=== PATIENT | male | born 2000 | race Two or more races ===

== ENCOUNTER 2024-06-05 07:54 | Emergency (ER) | payer OTHER, MEDICAID, SELFPAY ==
--- NOTE | 2024-06-05 08:07 | PC.NURSE ---
Call pt from lobby and outside no answer @[phone]
--- NOTE | 2024-06-05 08:17 | PC.NURSE ---
Call pt 5om lobby and outside no answer @[phone]
--- NOTE | 2024-06-05 08:39 | PC.NURSE ---
Call pt from lobby and outside no answer @[phone]
== END 2024-06-05 08:40 | disposition left against medical advice (07) ==
LOC: SERX 10:08
PROVIDERS: Emergency Provider Emergency Medicine
DX: Z53.21 Procedure and treatment not carried out due to patient leaving prior to being seen by health care provider (principal)

== ENCOUNTER 2024-09-17 11:03 | Emergency (ER) | payer OTHER, MEDICAID, SELFPAY ==
[2024-09-17 11:06] VITALS: BP 123/77; PULSE 87; RESP 19; TEMP 37.3; O2SAT 98; BMI 20.9
[2024-09-17] MEDS: METOCLOPRAMIDE INJ 5 MG/ML VIAL 2 ML 10 MG IM (11:25)
--- NOTE | 2024-09-17 11:34 | PD.EDRME ---
Rapid Medical Screening Exam RME Arrival date/time: 09/17/24 11:03 24-year-old male presents the emergency department complaint of nausea vomiting abdominal pain Chief Complaint: Weakness Time Seen by Provider: 09/17/24 11:05 Vital signs: Vital Signs Temperature 99.1 F 09/17/24 11:06 Pulse Rate 87 09/17/24 11:06 Respiratory Rate 19 09/17/24 11:06 Blood Pressure 123/77 09/17/24 11:06 Pulse Oximetry (%) 98 09/17/24 11:06 Oxygen Delivery Method Room Air 09/17/24 11:06
[2024-09-17 11:42] LABS: Basophils % (Auto) 0 % (0-2.5); Eosinophils % (Auto) 0 % (0-10); Hematocrit 35.7 % (41.0-53.0); Hemoglobin 12.7 g/dL (13.5-16.0); Immature Granulocytes % (Auto) 0 % (0-0); Immature Granulocytes Auto 0.02 Thou/mm3 (0.00-0.00); Lymphocytes % (Auto) 11 % (10-50); Mean Corpuscular HGB Conc 35.6 g/dl (31.0-37.0); Mean Corpuscular Hemoglobin 29.2 pg (25.0-35.0); Mean Corpuscular Volume 82 fL (80-100); Monocytes # (Auto) 0.4 Thou/mm3 (0.0-0.8); Monocytes % (Auto) 4 % (0-12); Neutrophils % (Auto) 85 % (37-80); Nucleated Red Blood Cell % 0 /100 WBC (0); Platelet Count 257 Thou/mm3 (140-440); RDW Standard Deviation 38.8 fL (35.1-43.9); Red Blood Count 4.35 Miln/mm3 (4.50-5.90); White Blood Count 9.5 Thou/mm3 (3.8-10.6)
[2024-09-17 12:00] LABS: Alanine Aminotransferase 22 U/L (10-49); Albumin/Globulin Ratio 1.9 (1.2-2.2); Alkaline Phosphatase 67 U/L (46-116); Anion Gap 5 (7-16); Aspartate Amino Transferase 36 U/L (0-34); BUN/Creatinine Ratio 15 Ratio (12-20); Blood Urea Nitrogen 12 mg/dL (9-23); Calcium 10.1 mg/dL (8.3-10.6); Calcium (Corrected) 10.1 mg/dL (8.5-10.1); Carbon Dioxide 26.7 mMol/L (20.0-31.0); Chloride 101 mMol/L (98-107); Creatinine (Component) 0.8 mg/dL (0.6-1.3); Estimated Creatinine Clearance 120.8 mL/min (>60); Globulin 2.6 gm/dL (2.3-3.5); Glucose 110 mg/dL (74-106); Lipase 31 U/L (12-53); Osmolality,Calculated 267 (275-295); Potassium 3.4 mMol/L (3.4-5.1); Sodium 133 mMol/L (136-145); Total Protein 7.6 gm/dL (5.7-8.2); eGFR > 60 See Note
--- NOTE | 2024-09-17 14:35 | PC.NURSE ---
no answer in lobby when called for room in ed
--- NOTE | 2024-09-17 14:59 | PC.NURSE ---
called pt back, no answer at this time
== END 2024-09-17 15:00 | disposition left against medical advice (07) ==
PROVIDERS: Nurse Practitioner Primary Care; Emergency Provider Emergency Medicine
DX: R11.2 Nausea with vomiting, unspecified (principal); R10.9 Unspecified abdominal pain; R53.1 Weakness; Z53.29 Procedure and treatment not carried out because of patient's decision for other reasons
CPT/HCPCS: 36415; 80053; 80307; 81001; 83690; 85025; 96372; 99281; J2765

== ENCOUNTER 2024-10-31 06:29 | Emergency (ER) | payer MEDICAID, SELFPAY ==
[2024-10-31 06:30] VITALS: BMI 21.6
[2024-10-31 06:39] VITALS: BP 113/66; PULSE 100; RESP 16; TEMP 37.4; O2SAT 97
--- NOTE | 2024-10-31 06:44 | XR_ITS ---
Examination: PA lateral chest 2 views Technique: Upright PA lateral chest 2 views Exam date and time: October 31, 2024 0652 hrs. Indications: Coughing fever beginning today Findings: Pneumonia in the posterior basal segment right lower lobe noted on the lateral view Mild hyperexpansion Normal heart size left The osseous structures are intact Impression: Early pneumonia posterior basal segment left lower lobe
--- NOTE | 2024-10-31 06:44 | EDNOTE_ITS ---
ED General RME/HPI General Chief complaint: General Adult/Misc Complain Stated complaint: L SIDE PAIN WITH DEEP BREATH Time Seen by Provider: 10/31/24 06:47 Source: patient Arrival date/time: 10/31/24 06:29 24-year-old male with no known medical history presents to the emergency room with a chief complaint of left-sided pain when taking a deep breath. Patient states he is coughing up phlegm and has congestion but denies any fever. Mode of arrival: ambulatory Limitations: no limitations Related Data Previous Rx's ?Medication ?Instructions ?Recorded metoclopramide HCl 10 mg tablet 10 mg PO Q6H PRN nausea and 06/07/22 (Reglan) vomiting #20 tabs promethazine 25 mg tablet 25 mg PO TID PRN nausea and 10/21/22 vomiting #14 tabs azithromycin 250 mg tablet See Rx Instructions PO .COMPLEX #6 10/31/24 (Zithromax Z-Jimbo) tabs Allergies Allergy/AdvReac Type Severity Reaction Status Date / Time marijuana (cannabis) Allergy Unknown Vomiting Verified 03/16/24 13:30 Review of Systems Review of Systems Systems Reviewed: All systems reviewed, normal except as documented Constitutional Constitutional: Reports system reviewed and no additional complaints, except as documented, Denies fatigue, Denies fever(s), Denies headache(s) and Denies weakness Eyes Eyes: Reports system reviewed and no additional complaints, except as documented, Denies blurry vision and Denies change in vision ENT Ears, Nose, Mouth, and Throat: Reports system reviewed and no additional complaints, except as documented, Denies otalgia, Denies headache(s), Denies nasal congestion, Denies throat swelling and Denies vertigo Cardiovascular Cardiovascular: Reports system reviewed and no additional complaints, except as documented, Denies chest pain, Denies dyspnea and Denies dyspnea on exertion Respiratory Respiratory: Reports system reviewed and no additional complaints, except as documented, Reports chest congestion, Reports cough, Denies dyspnea, Denies dyspnea on exertion, Reports pain on inspiration, Reports pain with cough and Reports wheezing Gastrointestinal Gastrointestinal: Reports system reviewed and no additional complaints, except as documented, Denies abdominal pain, Denies cramping, Denies nausea and Denies vomiting Genitourinary Genitourinary: Reports system reviewed and no additional complaints, except as documented, Denies dysuria and Denies hematuria Musculoskeletal Musculoskeletal: Reports system reviewed and no additional complaints, except as documented and Denies back pain Integumentary/Breasts Skin/Breast: Reports system reviewed and no additional complaints, except as documented and Denies wounds Neurologic Neurologic: Reports system reviewed and no additional complaints, except as documented, Denies confusion, Denies headache(s), Denies lack of coordination, Denies vertigo and Denies weakness Psychiatric Psychiatric: Reports system reviewed and no additional complaints, except as documented, Denies anxiety, Denies confusion, Denies depression, Denies paranoia, Denies suicidal ideation and Denies tactile hallucinations Endocrine Endocrine: Reports system reviewed and no additional complaints, except as documented and Denies fatigue Hematologic/Lymphatic Hematologic/Lymphatic: Reports system reviewed and no additional complaints, except as documented and Denies lymphadenopathy Allergic/Immunologic Allergic/Immunologic: Reports system reviewed and no additional complaints, except as documented, Denies throat swelling, Denies urticaria and Reports wheezing Past Medical History Past Medical History CARDIAC: Negative Cardiac Disorders, Myocardial Infarction, Cardiac Arrhythmia, Atrial Fibrillation, Angina, Heart Murmur, Coronary Artery Disease, Atherosclerotic Heart Disease, Peripheral Vascular Disease, Hypercholesterolemia, Aneurysm, Congestive Heart Failure, Congenital Heart Disease, Valvular Heart Disease, Rheumatic Fever, Cardiomyopathy, Edema, Pericarditis, Cellulitis, Deep Vein Thrombosis, Hypertension, Hypotension or Varicose Veins RESPIRATORY: Negative Chronic Obstructive Pulmonary Disease (COPD) or Asthma GASTROINTESTINAL: Positive Gastrointestinal Disorders and Ulcer; Negative Cirrhosis, Pancreatitis, Celiac Disease, Gall Bladder Disease, Gastrointestinal Bleed, Esophageal Varices, Loza's Esophagus, Colitis, Ulcerative Colitis, Diverticulitis, Diverticulosis, Irritable Bowel, Crohn's Disease, Hiatal Hernia, Hemorrhoids, Gastroesophageal Reflux Disease or Obesity GENITOURINARY: Negative Genitourinary Disorders, Renal Disease, Kidney Stones, Polycystic Kidney Disease, Neurogenic Bladder, Inguinal Hernia, Dialysis or Benign Prostatic Hyperplasia ENT: Negative Cataracts, Glaucoma, Blind, Retinal Detachment, Macular Degeneration, Ear Infection, Deafness or Eye Prosthesis ENDOCRINE: Negative Endocrine Disorders, Diabetes Mellitus Type 1, Diabetes Mellitus Type 2, Hypoglycemia, Mullan's Syndrome, [place]'s Disease, Hyperthyroidism, Hypothyroidism, Parathyroid Disease, Pituitary Disease, Systemic Lupus Erythematosus, Syndrome of Inappropriate Antidiuretic Hormone (SIADH), Adrenal Disease or Graves' Disease HEMATOLOGIC: Negative Blood Disorders, Anemia, Leukemia, Hemophilia, Thalassemia, Sickle Cell Disease or Clotting Problems OTHER HISTORY: Negative Autoimmune Disease Family History FAMILY HISTORY: Negative Family Psychiatric Problems, Family Respiratory Disorders, Family Cardiac Disorders, Family Gastrointestinal Problems, Family Cancer, Family Surgery or Family Anesthesia Reaction Surgical History SURGICAL: Negative Pacemaker Social History SMOKING STATUS: Never smoker SUBSTANCE USE: former substance user and marijuana (quit 1 month ago ) ED Exam General Limitations: Present no limitations General appearance: Present alert and in no apparent distress Head Head exam: Present atraumatic Eye Eye exam: Present normal appearance, PERRL and EOMI ENT ENT exam: Present normal exam, normal oropharynx and mucous membranes moist Neck Neck exam: Present normal inspection, full ROM and trachea midline Chest Chest inspection: Present normal inspection and symmetric chest wall rise Respiratory Respiratory exam: Present normal lung sounds bilaterally and wheezes; Absent respiratory distress, stridor, accessory muscle use or prolonged expiratory phase Expanded Respiratory Exam Location: Lower: wheezes Cardiovascular Cardiovascular exam: Present regular rate, normal rhythm and normal heart sounds Abdominal Exam Abdominal exam: Present soft and normal bowel sounds Extremities Exam Extremities exam: Present normal inspection and full ROM Back Exam Back exam: Present normal inspection and full ROM Neurological Exam Neurological exam: Present alert, oriented X3 and CN II-XII intact Psychiatric Psychiatric exam: Present normal affect and normal mood Skin Skin exam: Present warm, dry, intact and normal color Course Quality Measures none Orders Category Date Time Status Bedside COVID-19 Antigen Test NOW Care 10/31/24 06:44 Active Bedside Influenza A&B Antigen Test NOW Care 10/31/24 06:44 Completed XR chest 2V Stat Exams 10/31/24 06:44 Completed Albuterol/Ipratr Rt Marimar [Duoneb Rt Marimar] Med 10/31/24 06:44 Discontinued 3 ml INH X1 ONE Dexamethasone Inj [Decadron Inj] Med 10/31/24 06:44 Discontinued 6 mg PO X1 ONE Vital Signs Vital signs: Vital Signs Temperature 99.4 F 10/31/24 06:39 Pulse Rate 100 10/31/24 06:39 Respiratory Rate 16 10/31/24 06:39 Blood Pressure 113/66 10/31/24 06:39 Pulse Oximetry (%) 97 10/31/24 06:39 Oxygen Delivery Method Room Air 10/31/24 06:39 O2 saturation 97% within normal limits MDM Patient data External records reviewed:: [facility] previous records Clinical information provided by:: patient Social determinants that could affect healthcare access:: none Patient has the following chronic illnesses:: No chronic illness How is presenting disease/condition affected by chronic disease/condition?: no chronic disease Evaluation data The following diagnostics were reviewed and interpreted by me:: lab results and radiology exam(s) Lab and/or radiology exams considered but not ordered:: Labs and radiology exams considered and ordered Interpretation Summary: Chest [id number]: Pneumonia in the posterior basal segment right lower lobe noted on the lateral view Mild hyperexpansion Normal heart size left The osseous structures are intact Impression: Early pneumonia posterior basal segment left lower lobe Medications Medications considered but not ordered:: Medication given Medication administrations:: Medication Administration History Discontinued Medications Albuterol/Ipratropium (Albuterol/Ipratropium (Duoneb) Rt Marimar 3 Ml Nebu) 3 ml INH X1 ONE Stop: 10/31/24 06:45 Last Admin: 10/31/24 07:01 Dose: 3 ml Documented By: MW Comments: scanner would not scan pt wrist band Dexamethasone Sodium Phosphate (Dexamethasone Sod Phos Inj 4 Mg/Ml Vial) 6 mg PO X1 ONE; Protocol Stop: 10/31/24 06:45 Last Admin: 10/31/24 06:56 Dose: 6 mg Documented By: KG Medication given Consultations Consultation(s) initiated? (list below): No Diagnosis Differential Diagnosis ED Complaint MDM: COVID-19/influenza/pneumonia/upper respiratory infection Most likely diagnosis given after review of the tests above:: Community-acquired pneumonia Admission Indicated Admission indicated?: not indicated Explain why admission is indicated or not indicated:: N/A Admission Request Was there a request for admission?: No Disposition Plan Disposition Plan: Discharge Discharge Attestation Discharge Attestation: The patient and all family members were given an opportunity to ask questions and understood the discharge instructions. Discharge instructions specifically effects, indications for sooner follow up or return to the emergency department, and the expected course of current diagnosis. Patient condition: Stable Medical Decision Making MDM Narrative MDM Narrative: 24-year-old male with no known medical history presents to the emergency room with a chief complaint of left-sided pain when taking a deep breath. Patient states he is coughing up phlegm and has congestion but denies any fever. Clinically the patient appears nontoxic and in no apparent distress. Physical examination shows wheezing to the left lower lobe. A breathing treatment and steroids were given to the patient and the patient was reevaluated in 45 minutes with significant improvement to his lung sounds. Chest x-ray was completed and shows early left lower lobe pneumonia. Antibiotics were sent to the patient's pharmacy patient was discharged and educated to follow-up with primary care provider and return to the emergency room for any evidence of worsening signs or symptoms Differential Diagnosis Differential Diagnosis: COVID-19/influenza/pneumonia/upper respiratory infection Discharge Plan Plan Patient Disposition: HOME (Self Care) Disposition Comment: Stable Prescriptions/Referrals Prescriptions/Med Rec: New azithromycin [Zithromax Z-Jimbo] 250 mg tablet See Rx Instructions .ROUTE .COMPLEX Qty: 6 0RF Rx Instructions: For 250 mg dose pack: take 500 mg today (day 1), then 250 mg for 4 days (days 2-5) No Action metoclopramide HCl [Reglan] 10 mg tablet 10 mg PO Q6H PRN (Reason: nausea and vomiting) Qty: 20 0RF promethazine 25 mg tablet 25 mg PO TID PRN (Reason: nausea and vomiting) Qty: 14 0RF Rx Instructions: Please do not take while taking metoclopramide Problem List Clinical Impression: Community acquired pneumonia Patient/Caregiver Discharge Instructions Education Materials: ED Pneumonia (Adult) Additional Instructions: Please follow-up with your primary care provider in the next 24 to 48 hours. Your chest x-ray showed pneumonia, antibiotics are sent to your pharmacy please pick them up and take them as indicated. For any evidence of worsening signs or symptoms please return to the emergency room immediately. Please avoid smoking. Print Language: Serbian Stand Alone Forms: [employer] Award Info., Work/School Release, Patient Portal Info Letter IFTIKHAR/ROSALIND Supervising Physician VINAYAK Supervising Physician: Dr Boo
--- NOTE | 2024-10-31 06:51 | PC.NURSE ---
RT CALLED FOR BREATHING TREATMENT.
[2024-10-31] MEDS: DEXAMETHASONE SOD PHOS INJ 4 MG/ML VIAL 6 MG PO (06:56)
[2024-10-31 07:01] VITALS: PULSE 101; RESP 21; O2SAT 100
[2024-10-31] MEDS: ALBUTEROL/IPRATROPIUM (Duoneb) RT SOL 3 ML NEBU INH (07:01)
== END 2024-10-31 07:38 | disposition home or self-care (01) ==
LOC: SERX 08:04
PROVIDERS: Emergency Provider Emergency Medicine
DX: J18.9 Pneumonia, unspecified organism (principal)
CPT/HCPCS: 71046; 87400; 87811; 94640; 99283; A9270; J1100

== ENCOUNTER 2024-12-12 13:01 | Emergency (ER) | payer MEDICAID, SELFPAY ==
[2024-12-12 13:01] VITALS: BMI 20.9
[2024-12-12 13:21] VITALS: BP 116/71; PULSE 89; RESP 18; TEMP 37.1; O2SAT 99
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
== END 2024-12-12 14:31 | disposition home or self-care (01) ==
PROVIDERS: Emergency Provider Emergency Medicine; PCP Nurse Practitioner Family
DX: S06.0X0A Concussion without loss of consciousness, initial encounter (principal); V89.2XXA Person injured in unspecified motor-vehicle accident, traffic, initial encounter
CPT/HCPCS: 70450; 99284

== ENCOUNTER 2025-03-05 08:07 | Emergency (ER) | payer OTHER, MEDICAID, SELFPAY ==
[2025-03-05 08:16] VITALS: BP 107/71; PULSE 91; RESP 17; TEMP 37; O2SAT 96
--- NOTE | 2025-03-05 08:26 | XR_ITS ---
Examination: CT abdomen and pelvis without contrast. Coronal 3-D reconstructions. Sagittal 2-D reconstructions. Date and time of exam:March 05, 2025 0842 hrs. Comparison March 15, 2024 Indications: Onset abdominal pain today CTDI: vol (mGy): 4.38 DLP: (mGycm): 263 Technique: Axial images of the abdomen have been obtained, 3 mm slice thickness Intravenous contrast material has not been administered. Low dose protocols were performed. One or more of the following dose reduction techniques were used; automated exposure control, adjustment of the mA and/or KV according to patient size, use of iterative reconstruction technique. Findings: No focal liver or splenic lesions Possible gallbladder sludge No pancreatic mass No renal or ureteral calculi Aorta normal size No pericecal inflammatory change No bowel obstruction No prostatomegaly Urinary bladder intact Osseous structures intact Impression: No renal or ureteral calculi, no hydronephrosis No CT findings of appendicitis bowel obstruction or diverticulitis
--- NOTE | 2025-03-05 08:26 | PD.EDABDPN ---
ED Abdominal Pain RME/HPI General Chief Complaint: Abdominal Pain Stated complaint: N/V, ABD PAIN X 3 DAYS, FEELS DEHYDRATED Time seen by provider: 03/05/25 08:23 Arrival date/time: 03/05/25 08:07 24-year-old male with no known medical history presents to the emergency room with a chief complaint of nausea, vomiting, diffuse abdominal pain x 3 days Source: patient Mode of arrival: ambulatory Limitations: no limitations Related Data Previous Rx's ?Medication ?Instructions ?Recorded metoclopramide HCl 10 mg tablet 10 mg PO Q6H PRN nausea and 06/07/22 (Reglan) vomiting #20 tabs promethazine 25 mg tablet 25 mg PO TID PRN nausea and 10/21/22 vomiting #14 tabs azithromycin 250 mg tablet See Rx Instructions PO .COMPLEX #6 10/31/24 (Zithromax Z-Jimbo) tabs acetaminophen-caffeine 500 mg-65 1 tab PO Q6H PRN pain #30 tabs 12/12/24 mg tablet (Excedrin Tension Headache) ibuprofen 600 mg tablet 600 mg PO Q6H #30 tabs 12/12/24 ondansetron 4 mg disintegrating 4 mg PO Q8H PRN nausea and 03/05/25 tablet vomiting #14 tabs Allergies Allergy/AdvReac Type Severity Reaction Status Date / Time marijuana (cannabis) Allergy Unknown Vomiting Verified 03/05/25 08:12 Review of Systems Review of Systems Systems Reviewed: All systems reviewed, normal except as documented Constitutional Constitutional: Reports system reviewed and no additional complaints, except as documented, Denies fatigue, Reports fever(s), Denies headache(s) and Reports weakness Eyes Eyes: Reports system reviewed and no additional complaints, except as documented, Denies blurry vision and Denies change in vision ENT Ears, Nose, Mouth, and Throat: Reports system reviewed and no additional complaints, except as documented, Denies otalgia, Denies headache(s), Denies nasal congestion, Denies throat swelling and Denies vertigo Cardiovascular Cardiovascular: Reports system reviewed and no additional complaints, except as documented, Denies chest pain, Denies dyspnea and Denies dyspnea on exertion Respiratory Respiratory: Reports system reviewed and no additional complaints, except as documented, Denies chest congestion, Denies cough, Denies dyspnea, Denies dyspnea on exertion and Denies wheezing Gastrointestinal Gastrointestinal: Reports system reviewed and no additional complaints, except as documented, Reports abdominal pain, Reports cramping, Reports nausea and Reports vomiting Genitourinary Genitourinary: Reports system reviewed and no additional complaints, except as documented, Denies dysuria and Denies hematuria Musculoskeletal Musculoskeletal: Reports system reviewed and no additional complaints, except as documented and Denies back pain Integumentary/Breasts Skin/Breast: Reports system reviewed and no additional complaints, except as documented and Denies wounds Neurologic Neurologic: Reports system reviewed and no additional complaints, except as documented, Denies confusion, Denies headache(s), Denies lack of coordination, Denies vertigo and Reports weakness Psychiatric Psychiatric: Reports system reviewed and no additional complaints, except as documented, Denies anxiety, Denies confusion, Denies depression, Denies paranoia, Denies suicidal ideation and Denies tactile hallucinations Endocrine Endocrine: Reports system reviewed and no additional complaints, except as documented and Denies fatigue Hematologic/Lymphatic Hematologic/Lymphatic: Reports system reviewed and no additional complaints, except as documented and Denies lymphadenopathy Allergic/Immunologic Allergic/Immunologic: Reports system reviewed and no additional complaints, except as documented, Denies throat swelling, Denies urticaria and Denies wheezing Past Medical History Past Medical History CARDIAC: Negative Cardiac Disorders, Myocardial Infarction, Cardiac Arrhythmia, Atrial Fibrillation, Angina, Heart Murmur, Coronary Artery Disease, Atherosclerotic Heart Disease, Peripheral Vascular Disease, Hypercholesterolemia, Aneurysm, Congestive Heart Failure, Congenital Heart Disease, Valvular Heart Disease, Rheumatic Fever, Cardiomyopathy, Edema, Pericarditis, Cellulitis, Deep Vein Thrombosis, Hypertension, Hypotension or Varicose Veins RESPIRATORY: Negative Chronic Obstructive Pulmonary Disease (COPD) or Asthma GASTROINTESTINAL: Positive Gastrointestinal Disorders and Ulcer; Negative Cirrhosis, Pancreatitis, Celiac Disease, Gall Bladder Disease, Gastrointestinal Bleed, Esophageal Varices, Loza's Esophagus, Colitis, Ulcerative Colitis, Diverticulitis, Diverticulosis, Irritable Bowel, Crohn's Disease, Hiatal Hernia, Hemorrhoids, Gastroesophageal Reflux Disease or Obesity GENITOURINARY: Negative Genitourinary Disorders, Renal Disease, Kidney Stones, Polycystic Kidney Disease, Neurogenic Bladder, Inguinal Hernia, Dialysis or Benign Prostatic Hyperplasia ENT: Negative Cataracts, Glaucoma, Blind, Retinal Detachment, Macular Degeneration, Ear Infection, Deafness or Eye Prosthesis ENDOCRINE: Negative Endocrine Disorders, Diabetes Mellitus Type 1, Diabetes Mellitus Type 2, Hypoglycemia, Jose A's Syndrome, Clarendon's Disease, Hyperthyroidism, Hypothyroidism, Parathyroid Disease, Pituitary Disease, Systemic Lupus Erythematosus, Syndrome of Inappropriate Antidiuretic Hormone (SIADH), Adrenal Disease or Graves' Disease HEMATOLOGIC: Negative Blood Disorders, Anemia, Leukemia, Hemophilia, Thalassemia, Sickle Cell Disease or Clotting Problems OTHER HISTORY: Negative Autoimmune Disease Family History FAMILY HISTORY: Negative Family Psychiatric Problems, Family Respiratory Disorders, Family Cardiac Disorders, Family Gastrointestinal Problems, Family Cancer, Family Surgery or Family Anesthesia Reaction Surgical History SURGICAL: Negative Pacemaker Social History SMOKING STATUS: Never smoker SUBSTANCE USE: former substance user and marijuana (quit 1 month ago ) ED Exam General Limitations: Present no limitations General appearance: Present alert and in no apparent distress Head Head exam: Present atraumatic Eye Eye exam: Present normal appearance, PERRL and EOMI ENT ENT exam: Present normal exam, normal oropharynx and mucous membranes moist Neck Neck exam: Present normal inspection, full ROM and trachea midline Chest Chest inspection: Present normal inspection and symmetric chest wall rise Respiratory Respiratory exam: Present normal lung sounds bilaterally Cardiovascular Cardiovascular exam: Present regular rate, normal rhythm and normal heart sounds Abdominal Exam Abdominal exam: Present soft, tenderness and normal bowel sounds; Absent distention, guarding, rebound, rigidity, Chiang's sign or tenderness at McBurney's Point Abdominal tenderness: Present RUQ, RLQ, LUQ, LLQ and moderate Extremities Exam Extremities exam: Present normal inspection and full ROM Back Exam Back exam: Present normal inspection and full ROM Neurological Exam Neurological exam: Present alert, oriented X3 and CN II-XII intact Psychiatric Psychiatric exam: Present normal affect and normal mood Skin Skin exam: Present warm, dry, intact and normal color Course Quality Measures none Orders Category Date Time Status Insert IV NOW Care 03/05/25 10:[address] abdomen pelvis wo con Stat Exams 03/05/25 08:26 Completed US gall bladder Stat Exams 03/05/25 10:05 Completed CBC Stat Lab 03/05/25 08:40 Completed CMP [Comprehensive Metabolic Panel] Stat Lab 03/05/25 08:40 Completed Lipase Stat Lab 03/05/25 08:40 Completed UA [Urinalysis] Stat Lab 03/05/25 09:25 Completed Urine Culture Stat Lab 03/05/25 09:25 Received HYDROcodone*/APAP 5/325 [[place] 5/325] Med 03/05/25 08:26 Discontinued 1 tab PO X1 ONE Ondansetron Inj [Zofran Inj] Med 03/05/25 10:34 Discontinued 4 mg IV X1 ONE Ondansetron Odt [Zofran Odt] Med 03/05/25 08:26 Discontinued 4 mg PO X1 ONE Potassium Chloride [K-Dur] Med 03/05/25 10:33 Discontinued 40 meq PO X1 ONE Sodium Chloride 0.9% 1000 ml [Ns] 1,000 ml Med 03/05/25 10:34 Discontinued IV 999 mls/hr mg Hyd/Al Hyd/Renan Susp [Maalox Susp] Med 03/05/25 08:26 Discontinued 30 ml PO X1 ONE Vital Signs Vital signs: Vital Signs Temperature 98.6 F 03/05/25 08:16 Pulse Rate 91 03/05/25 08:16 Respiratory Rate 17 03/05/25 08:16 Blood Pressure 107/71 03/05/25 08:16 Pulse Oximetry (%) 96 03/05/25 08:16 Oxygen Delivery Method Room Air 03/05/25 08:16 O2 saturation 96% within normal limits Abdominal Pain MDM MDM Narrative MDM Narrative:: 24-year-old male with no known medical history presents to the emergency room with a chief complaint of nausea, vomiting, diffuse abdominal pain x 3 days Patient is hemodynamically stable and in no apparent distress. He is afebrile not tachycardic not tachypneic and O2 saturation is 96 on room air Physical examination showed diffuse abdominal pain to every quadrant with palpation. The patient has active bowel sounds to all [address] of the abdomen and pelvis was completed and was negative for any acute findings. CBC CMP were completed and the patient's bilirubin level was elevated. An ultrasound of the gallbladder and liver were completed and were within normal limits. Patient was given oral potassium due to his potassium level of 3.3. 1 L of fluids were given with significant improvement to his symptoms Patient was discharged and educated to follow-up with primary care provider in the next 24 to 48 hours and return to the emergency room for any evidence of worsening signs or symptoms Patient data External records reviewed:: [facility] previous records Clinical information provided by:: patient Social determinants that could affect healthcare access:: none Patient has the following chronic illnesses:: No chronic illness How is presenting disease/condition affected by chronic disease/condition?: no chronic disease Evaluation data The following diagnostics were reviewed and interpreted by me:: lab results and radiology exam(s) Lab and/or radiology exams considered but not ordered:: Labs and radiology exams considered and ordered Interpretation Summary: CT abdomen and pelvis-Findings: No focal liver or splenic lesions Possible gallbladder sludge No pancreatic mass No renal or ureteral calculi Aorta normal size No pericecal inflammatory change No bowel obstruction No prostatomegaly Urinary bladder intact Osseous structures intact Impression: No renal or ureteral calculi, no hydronephrosis No CT findings of appendicitis bowel obstruction or diverticulitis Medications / Prescriptions Medications or Prescriptions considered but not ordered:: Medication given Medication administrations:: Medication Administration History Discontinued Medications Hydrocodone Bitart/Acetaminophen (Hydrocodone/Apap 5/325 Tablet) 1 tab PO X1 ONE Stop: 03/05/25 08:27 Last Admin: 03/05/25 08:50 Dose: 1 tab Documented By: ANTONINO Al Hydrox/Mg Hydrox/Simethicone (Mg Hyd/Al Hyd/Renan (Maalox Reg) Susp 30 Ml Udc) 30 ml PO X1 ONE Stop: 03/05/25 08:27 Last Admin: 03/05/25 08:51 Dose: 30 ml Documented By: ANTONINO Sodium Chloride (Ns) 1,000 mls @ 999 mls/hr IV .Q1H1M ONE Stop: 03/05/25 11:34 Last Infusion: 03/05/25 12:31 Dose: Infused Documented By: Admin: 03/05/25 11:11 Dose: 999 mls/hr Documented By: CEDRIC Ondansetron HCl (Ondansetron Odt 4 Mg Tabrap) 4 mg PO X1 ONE; Protocol Stop: 03/05/25 08:27 Last Admin: 03/05/25 08:51 Dose: 4 mg Documented By: ANTONINO Ondansetron HCl (Ondansetron Inj 2 Mg/Ml Inj 2 Ml) 4 mg IV X1 ONE; Protocol Stop: 03/05/25 10:35 Last Admin: 03/05/25 11:11 Dose: 4 mg Documented By: CEDRIC Potassium Chloride (Potassium Chloride 20 Meq Tabcr) 40 meq PO X1 ONE Stop: 03/05/25 10:34 Last Admin: 03/05/25 11:11 Dose: 40 meq Documented By: CEDRIC Medication given Consultations Consultation(s) initiated? (list below): No Diagnosis Differential diagnosis abdominal pain: abdominal pain, acute appendicitis, constipation and gastroenteritis Most likely diagnosis given after review of the tests above:: Gastroenteritis Admission Indicated Admission indicated?: not indicated Admission Request Was there a request for admission?: No Disposition Plan Disposition Plan: Discharge Discharge Attestation Discharge Attestation: The patient and all family members were given an opportunity to ask questions and understood the discharge instructions. Discharge instructions specifically effects, indications for sooner follow up or return to the emergency department, and the expected course of current diagnosis. Patient condition: Stable Discharge Plan Plan Patient Disposition: HOME (Self Care) Discharge Disposition comment: Stable Prescriptions/Referrals Prescriptions/Med Rec: New ondansetron 4 mg tablet,disintegrating 4 mg PO Q8H PRN (Reason: nausea and vomiting) Qty: 14 0RF No Action metoclopramide HCl [Reglan] 10 mg tablet 10 mg PO Q6H PRN (Reason: nausea and vomiting) Qty: 20 0RF azithromycin [Zithromax Z-Jimbo] 250 mg tablet See Rx Instructions .ROUTE .COMPLEX Qty: 6 0RF Rx Instructions: For 250 mg dose pack: take 500 mg today (day 1), then 250 mg for 4 days (days 2-5) promethazine 25 mg tablet 25 mg PO TID PRN (Reason: nausea and vomiting) Qty: 14 0RF Rx Instructions: Please do not take while taking metoclopramide Excedrin Tension Headache 500-65 mg tablet 1 tab PO Q6H PRN (Reason: pain) Qty: 30 0RF ibuprofen 600 mg tablet 600 mg PO Q6H Qty: 30 0RF Referrals: Conchita Choudhary PA-C [Primary Care Provider] - In 1 week Problem List Clinical Impression: Gastroenteritis Patient/Caregiver Discharge Instructions Education Materials: ED Gastroenteritis, Noninfectious, ED Vomiting (Adult) Additional Instructions: Please follow-up with your primary care provider in the next [address] of your abdomen and pelvis was negative for any acute findings. An ultrasound of your gallbladder was negative for any acute findings. Your blood work was within normal limits. For any evidence of worsening signs or symptoms return to the emergency room immediately Print Language: Slovak Stand Alone Forms: [employer] Award Info., Patient Portal Info Letter IFTIKHAR/ROSALIND Supervising Physician IFTIKHAR/ROSALIND Supervising Physician: Dr. Dean
[2025-03-05] MEDS: HYDROcodone/APAP 5/325 TABLET 1 TAB PO (08:50)
[2025-03-05] MEDS: ONDANSETRON ODT 4 MG TABRAP PO (08:51)
[2025-03-05] MEDS: MG HYD/AL HYD/SIME (Maalox Reg) SUSP 30 ML UDC PO (08:51)
[2025-03-05 09:20] LABS: Basophils % (Auto) 0 % (0-2.5); Eosinophils % (Auto) 0 % (0-10); Hematocrit 38.5 % (41.0-53.0); Hemoglobin 13.8 g/dL (13.5-16.0); Immature Granulocytes % (Auto) 0 % (0-0); Immature Granulocytes Auto 0.02 Thou/mm3 (0.00-0.00); Lymphocytes # (Auto) 1.8 Thou/mm3 (1.0-4.8); Lymphocytes % (Auto) 25 % (10-50); Mean Corpuscular HGB Conc 35.8 g/dl (31.0-37.0); Mean Corpuscular Hemoglobin 29.2 pg (25.0-35.0); Mean Corpuscular Volume 81 fL (80-100); Monocytes # (Auto) 0.6 Thou/mm3 (0.0-0.8); Monocytes % (Auto) 8 % (0-12); Neutrophils # (Auto) 4.8 Thou/mm3 (1.8-7.7); Neutrophils % (Auto) 66 % (37-80); Nucleated Red Blood Cell % 0 /100 WBC (0); Platelet Count 263 Thou/mm3 (140-440); RDW Standard Deviation 37.1 fL (35.1-43.9); Red Blood Count 4.73 Miln/mm3 (4.50-5.90); White Blood Count 7.2 Thou/mm3 (3.8-10.6)
[2025-03-05 09:32] LABS: Collection Type, Urine Clean Catch
[2025-03-05 09:48] LABS: Bilirubin,Urine Negative (Negative); Blood,Urine 2+ (Negative); Clarity,Urine Clear (Clear/Hazy); Color,Urine Yellow (Lt Yel-Yel); Glucose, Urine Negative (Negative); Ketones,Urine 2+ (Negative); Leukocyte Esterase,Urine Negative (Negative); Nitrite,Urine Negative (Negative); Protein,Urine 1+ (Neg - Trace); RBC,Urine 7 /hpf (0-3); Specific Gravity,Urine 1.034 (1.001-1.035); Squamous Epithelial Cell,Urine < 1 /hpf (0-5); Urobilinogen,Urine Negative mg/dL (0.0-1.0); WBC,Urine 6 /hpf (0-5)
[2025-03-05 09:55] LABS: Alanine Aminotransferase 19 U/L (10-49); Albumin/Globulin Ratio 1.9 (1.2-2.2); Alkaline Phosphatase 57 U/L (46-116); Anion Gap 10 (7-16); Aspartate Amino Transferase 28 U/L (0-34); BUN/Creatinine Ratio 14 Ratio (12-20); Bilirubin,Total 3.7 mg/dL (0.3-1.2); Blood Urea Nitrogen 13 mg/dL (9-23); Calcium 9.5 mg/dL (8.3-10.6); Calcium (Corrected) 9.5 mg/dL (8.5-10.1); Carbon Dioxide 25.6 mMol/L (20.0-31.0); Chloride 99 mMol/L (98-107); Creatinine (Component) 0.9 mg/dL (0.6-1.3); Estimated Creatinine Clearance 99.1 mL/min (>60); Globulin 2.7 gm/dL (2.3-3.5); Glucose 105 mg/dL (74-106); Lipase 26 U/L (12-53); Osmolality,Calculated 270 (275-295); Potassium 3.3 mMol/L (3.4-5.1); Sodium 135 mMol/L (136-145); Total Protein 7.7 gm/dL (5.7-8.2); eGFR > 60 See Note
--- NOTE | 2025-03-05 10:05 | XR_ITS ---
Examination: Abdomen sonogram, Limited Date and time of exam: March 05, 2025 1013 hrs. Indications: Epigastric pain nausea vomiting beginning 3 days ago Technique: Real-time montalvo scale transabdominal sonographic images of the upper abdomen obtained. Findings: Normal gallbladder. Normal common bile duct 0.2 cm. Pancreatic head 2.1 cm Liver 14.2 cm smooth contour no focal liver lesions. Normal hepatopedal portal venous flow. Patent IVC Impression: Negative study
[2025-03-05 10:08] VITALS: BP 116/72; PULSE 70; RESP 12; TEMP 36.7; O2SAT 98
[2025-03-05] MEDS: SODIUM CHLORIDE 0.9% 1000 ML 1,000 ML 999 ML IV (11:11)
[2025-03-05] MEDS: ONDANSETRON INJ 2 MG/ML INJ 2 ML 4 MG IV (11:11)
[2025-03-05] MEDS: POTASSIUM CHLORIDE 20 mEq TABCR 40 MEQ PO (11:11)
[2025-03-05 12:00] VITALS: BP 118/67; PULSE 67; RESP 12; TEMP 36.8; O2SAT 100
[2025-03-05 12:32] VITALS: BP 118/67; PULSE 78; RESP 12; TEMP 36.6; O2SAT 98
== END 2025-03-05 12:32 | disposition home or self-care (01) ==
PROVIDERS: Nurse Practitioner Family; Emergency Provider Family Medicine; PCP Physician Assistant
DX: K52.9 Noninfective gastroenteritis and colitis, unspecified (principal)
CPT/HCPCS: 36415; 74176; 76705; 80053; 81001; 83690; 85025; 87086; 96361; 96374; 99284; J2405; J7030; Q0162; A9270

== ENCOUNTER 2025-03-08 10:00 | Emergency (ER) | payer OTHER, MEDICAID, SELFPAY ==
[2025-03-08 10:07] VITALS: BP 116/72; PULSE 108; RESP 18; TEMP 36.8; O2SAT 99; BMI 20.1
--- NOTE | 2025-03-08 10:23 | PD.EDRME ---
Rapid Medical Screening Exam RME Arrival date/time: 03/08/25 10:00 24-year-old male presents to the emergency department today for complaints of nausea vomiting Chief Complaint: Flu Like Symptoms Vital signs: Vital Signs Temperature 98.2 F 03/08/25 10:07 Pulse Rate 108 H 03/08/25 10:07 Respiratory Rate 18 03/08/25 10:07 Blood Pressure 116/72 03/08/25 10:07 Pulse Oximetry (%) 99 03/08/25 10:07 Oxygen Delivery Method Room Air 03/08/25 10:07
[2025-03-08] MEDS: METOCLOPRAMIDE INJ 5 MG/ML VIAL 2 ML 10 MG IM (10:28)
[2025-03-08 11:01] LABS: Basophils % (Auto) 1 % (0-2.5); Eosinophils % (Auto) 0 % (0-10); Hematocrit 38.7 % (41.0-53.0); Hemoglobin 14.2 g/dL (13.5-16.0); Immature Granulocytes % (Auto) 0 % (0-0); Lymphocytes # (Auto) 1.6 Thou/mm3 (1.0-4.8); Lymphocytes % (Auto) 36 % (10-50); Mean Corpuscular HGB Conc 36.7 g/dl (31.0-37.0); Mean Corpuscular Hemoglobin 29.5 pg (25.0-35.0); Mean Corpuscular Volume 80 fL (80-100); Monocytes # (Auto) 0.3 Thou/mm3 (0.0-0.8); Monocytes % (Auto) 6 % (0-12); Neutrophils # (Auto) 2.5 Thou/mm3 (1.8-7.7); Neutrophils % (Auto) 57 % (37-80); Nucleated Red Blood Cell % 0 /100 WBC (0); Platelet Count 281 Thou/mm3 (140-440); Red Blood Count 4.82 Miln/mm3 (4.50-5.90); White Blood Count 4.5 Thou/mm3 (3.8-10.6)
[2025-03-08 11:30] LABS: Alanine Aminotransferase 14 U/L (10-49); Albumin, Serum 4.8 gm/dL (3.5-5.0); Albumin/Globulin Ratio 1.7 (1.2-2.2); Alkaline Phosphatase 55 U/L (46-116); Anion Gap 10 (7-16); Aspartate Amino Transferase 22 U/L (0-34); BUN/Creatinine Ratio 9 Ratio (12-20); Bilirubin,Total 5.3 mg/dL (0.3-1.2); Blood Urea Nitrogen 8 mg/dL (9-23); Calcium 9.3 mg/dL (8.3-10.6); Calcium (Corrected) 9.3 mg/dL (8.5-10.1); Carbon Dioxide 27.3 mMol/L (20.0-31.0); Chloride 98 mMol/L (98-107); Creatinine (Component) 0.9 mg/dL (0.6-1.3); Estimated Creatinine Clearance 103.2 mL/min (>60); Globulin 2.8 gm/dL (2.3-3.5); Glucose 148 mg/dL (74-106); Lipase 31 U/L (12-53); Osmolality,Calculated 271 (275-295); Potassium 3.5 mMol/L (3.4-5.1); Sodium 135 mMol/L (136-145); Total Protein 7.6 gm/dL (5.7-8.2); eGFR > 60 See Note
--- NOTE | 2025-03-08 13:45 | PC.NURSE ---
PATIENT ELOPED WITH ED, THEY WERE CALLED 3 TIMES Q5MIN APART
== END 2025-03-08 13:46 | disposition left against medical advice (07) ==
LOC: SERX 10:48
PROVIDERS: Nurse Practitioner Primary Care; Emergency Provider Emergency Medicine; PCP Family Medicine
DX: R11.2 Nausea with vomiting, unspecified (principal); Z53.29 Procedure and treatment not carried out because of patient's decision for other reasons
CPT/HCPCS: 36415; 80053; 80307; 81001; 83690; 85025; 96372; 99281; J2765

== ENCOUNTER 2025-03-26 12:17 | Emergency (ER) | payer OTHER, MEDICAID, SELFPAY ==
[2025-03-26 13:04] VITALS: BP 132/82; PULSE 100; RESP 20; TEMP 36.8; O2SAT 98; BMI 20.5
--- NOTE | 2025-03-26 13:14 | XR_ITS ---
Examination: Abdomen sonogram, complete Date and time of exam: March 26, 2025 1359 hours INDICATIONS: Epigastric pain and vomiting this week. Technique: Multiple real-time grayscale transabdominal sonographic images of the abdomen have been obtained. Findings: Normal gallbladder Normal common bile duct 0.4 cm Pancreatic head 2.3 cm Aorta and nonenlarged Liver 14.9 cm no liver lesions Normal hepatopedal portal venous flow Patent IVC Right kidney 9.3 cm cortex 1.7 cm Left kidney 10.6 cm renal cortex 1.8 cm 6 mm mid pole left renal calculus No hydronephrosis Spleen 9.5 cm IMPRESSION: Normal gallbladder Normal common bile duct. Liver normal size. 6 mm mid pole nonobstructing left renal calculus
--- NOTE | 2025-03-26 13:21 | PD.EDRME ---
Rapid Medical Screening Exam RME Arrival date/time: 03/26/25 12:17 Chief Complaint: Abdominal Pain Time Seen by Provider: 03/26/25 12:54 Vital signs: Vital Signs Temperature 98.3 F 03/26/25 13:04 Pulse Rate 100 03/26/25 13:04 Respiratory Rate 20 03/26/25 13:04 Blood Pressure 132/82 H 03/26/25 13:04 Pulse Oximetry (%) 98 03/26/25 13:04 Oxygen Delivery Method Room Air 03/26/25 13:04 Vital signs reviewed by provider: Yes RME Narrative: 24 year old male presents to the ED with a 1 week history of vomiting. He has had previous occurrences of vomiting and is awaiting a GI consult next week. He is unable to keep anything down. He denies any alcohol intake or use of Marijuana. I have greeted and performed a focused initial assessment of this patient. A comprehensive ED assessment and evaluation of the patient, analysis of all test results, and completion of the medical decision making process will be conducted by additional ED providers.
[2025-03-26] MEDS: ONDANSETRON INJ 2 MG/ML INJ 2 ML 4 MG IVP (13:41)
[2025-03-26 13:43] LABS: Basophils % (Auto) 0 % (0-2.5); Eosinophils % (Auto) 0 % (0-10); Hemoglobin 13.7 g/dL (13.5-16.0); Immature Granulocytes % (Auto) 0 % (0-0); Immature Granulocytes Auto 0.03 Thou/mm3 (0.00-0.00); Lymphocytes # (Auto) 1.3 Thou/mm3 (1.0-4.8); Lymphocytes % (Auto) 15 % (10-50); Mean Corpuscular HGB Conc 36.1 g/dl (31.0-37.0); Mean Corpuscular Hemoglobin 29.3 pg (25.0-35.0); Mean Corpuscular Volume 81 fL (80-100); Monocytes # (Auto) 0.3 Thou/mm3 (0.0-0.8); Monocytes % (Auto) 3 % (0-12); Neutrophils # (Auto) 7.2 Thou/mm3 (1.8-7.7); Neutrophils % (Auto) 82 % (37-80); Nucleated Red Blood Cell % 0 /100 WBC (0); Platelet Count 258 Thou/mm3 (140-440); RDW Standard Deviation 37.1 fL (35.1-43.9); Red Blood Count 4.67 Miln/mm3 (4.50-5.90); White Blood Count 8.9 Thou/mm3 (3.8-10.6)
[2025-03-26] MEDS: SODIUM CHLORIDE 0.9% 1000 ML 1,000 ML 999 ML IV ×2 (13:44→16:30)
[2025-03-26 14:00] LABS: Alanine Aminotransferase 18 U/L (10-49); Albumin, Serum 4.9 gm/dL (3.5-5.0); Alkaline Phosphatase 51 U/L (46-116); Amylase 91 U/L (30-118); Anion Gap 12 (7-16); Aspartate Amino Transferase 30 U/L (0-34); BUN/Creatinine Ratio 12 Ratio (12-20); Bilirubin,Total 3.2 mg/dL (0.3-1.2); Blood Urea Nitrogen 11 mg/dL (9-23); Calcium 9.9 mg/dL (8.3-10.6); Calcium (Corrected) 9.9 mg/dL (8.5-10.1); Carbon Dioxide 24.1 mMol/L (20.0-31.0); Chloride 107 mMol/L (98-107); Creatinine (Component) 0.9 mg/dL (0.6-1.3); Estimated Creatinine Clearance 104.9 mL/min (>60); Globulin 2.4 gm/dL (2.3-3.5); Glucose 138 mg/dL (74-106); Lipase 32 U/L (12-53); Magnesium 1.8 mg/dL (1.6-2.6); Osmolality,Calculated 286 (275-295); Phosphorous 2.7 mg/dL (2.4-5.1); Potassium 3.7 mMol/L (3.4-5.1); Sodium 143 mMol/L (136-145); Total Protein 7.3 gm/dL (5.7-8.2); eGFR > 60 See Note
--- NOTE | 2025-03-26 15:09 | PC.NURSE ---
PT MADE AWARE THAT WE NEED A URINE SAMPLE IS STILL NEEDED
[2025-03-26 15:52] LABS: Collection Type, Urine Clean Catch
[2025-03-26 16:08] VITALS: BP 108/78; PULSE 67; RESP 18; TEMP 36.6; O2SAT 99
[2025-03-26 16:26] LABS: Amphetamine/Methamp Scrn,U Negative (Negative); Barbiturate Screen,Urine Negative (Negative); Benzodiazepines Screen,Urine Negative (Negative); Benzoylecgonine Screen, Ur Negative (Negative); Fentanyl Screen,Urine Negative (Negative); Opiate Screen,Urine Negative (Negative); THC Screen,Urine Positive (Negative)
[2025-03-26 16:33] LABS: Bacteria,Urine Rare; Bilirubin,Urine Negative (Negative); Blood,Urine Negative (Negative); Clarity,Urine Clear (Clear/Hazy); Color,Urine Lt-Yellow (Lt Yel-Yel); Glucose, Urine Negative (Negative); Ketones,Urine 1+ (Negative); Leukocyte Esterase,Urine Negative (Negative); Nitrite,Urine Negative (Negative); Protein,Urine Trace (Neg - Trace); RBC,Urine 1 /hpf (0-3); Squamous Epithelial Cell,Urine < 1 /hpf (0-5); Urobilinogen,Urine Negative mg/dL (0.0-1.0); WBC,Urine 1 /hpf (0-5)
[2025-03-26] MEDS: HALOPERIDOL LACT INJ 5 MG/ML VIAL 10 MG IM (16:38)
[2025-03-26] MEDS: DiphenhydrAMINE INJ 50 MG/ML VIAL IVP (16:38)
--- NOTE | 2025-03-26 16:49 | EDRME_ITS ---
Rapid Medical Screening Exam RME Arrival date/time: 03/26/25 12:17 24 year old male presents to the ED with a 1 week history of vomiting. He has had previous occurrences of vomiting and is awaiting a GI consult next week. He is unable to keep anything down. He denies any alcohol intake or use of Madeleine hilda. I have greeted and performed a focused initial assessment of this patient. A comprehensive ED assessment and evaluation of the patient, analysis of all test results, and completion of the medical decision making process will be conducted by additional ED providers. Chief Complaint: Abdominal Pain Time Seen by Provider: 03/26/25 12:54 Vital signs: Vital Signs Temperature 98.3 F 03/26/25 13:04 Pulse Rate 100 03/26/25 13:04 Respiratory Rate 20 03/26/25 13:04 Blood Pressure 132/82 H 03/26/25 13:04 Pulse Oximetry (%) 98 03/26/25 13:04 Oxygen Delivery Method Room Air 03/26/25 13:04 RME Narrative: 24 year old male presents to the ED with a 1 week history of vomiting. He has had previous occurrences of vomiting and is awaiting a GI consult next week. He is unable to keep anything down. He denies any alcohol intake or use of Marijuana. I have greeted and performed a focused initial assessment of this patient. A comprehensive ED assessment and evaluation of the patient, analysis of all test results, and completion of the medical decision making process will be conducted by additional ED providers.
--- NOTE | 2025-03-26 16:50 | EDNOTE_ITS ---
ED Abdominal Pain RME/HPI General Chief Complaint: Abdominal Pain Stated complaint: VOMITING TIMES 1 WEEK Time seen by provider: 03/26/25 12:54 Arrival date/time: 03/26/25 12:17 RME / HPI RME / HPI narrative: 24 year old male presents to the ED with a 1 week history of vomiting. He has had previous occurrences of vomiting and is awaiting a GI consult next week. He is unable to keep anything down. He denies any alcohol intake or use of Marijuana. I have greeted and performed a focused initial assessment of this patient. A comprehensive ED assessment and evaluation of the patient, analysis of all test results, and completion of the medical decision making process will be conducted by additional ED providers. Related Data Previous Rx's ?Medication ?Instructions ?Recorded metoclopramide HCl 10 mg tablet 10 mg PO Q6H PRN nause a and 06/07/22 (Reglan) vomiting #20 tabs promethazine 25 mg tablet 25 mg PO TID PRN nausea and 10/21/22 vomiting #14 tabs azithromycin 250 mg tablet See Rx Instructions PO .COM PLEX #6 10/31/24 (Zithromax Z-Jimbo) tabs acetaminophen-caffeine 500 mg-65 1 tab PO Q6H PRN pain #30 tabs 12/12/24 mg tablet (Excedrin Tension Headache) ibuprofen 600 mg tablet 600 mg PO Q6H #30 tabs 12/12 ondansetron 4 mg disintegrating 4 mg PO Q8H PRN nausea and 03/05/25 tablet vomiting #14 tabs prochlorperazine maleate 10 mg 10 mg PO Q8H PRN nausea and 03/26/25 tablet (Compazine) vomiting #20 tabs Allergies Allergy/AdvReac Type Severity Reaction Status Date / Time marijuana (cannabis) Allergy Unknown Vomiting Verified 03/26/25 12:22 Review of Systems Review of Systems Systems Reviewed: All systems reviewed, normal except as documented Past Medical History Past Medical History CARDIAC: Negative Cardiac Disorders, Myocardial Infarction, Cardiac Arrhythmia, Atrial Fibrillation, Angina, Heart Murmur, Coronary Artery Disease, Atherosclerotic Heart Disease, Peripheral Vascular Disease, Hypercholesterolemia, Aneurysm, Congestive Heart Failure, Congenital Heart Disease, Valvular Heart Disease, Rheumatic Fever, Cardiomyopathy, Edema, Pericarditis, Cellulitis, Deep Vein Thrombosis, Hypertension, Hypotension or Varicose Veins RESPIRATORY: Negative Chronic Obstructive Pulmonary Disease (COPD) or Asthma GASTROINTESTINAL: Positive Gastrointestinal Disorders and Ulcer; Negative Cirrhosis, Pancreatitis, Celiac Disease, Gall Bladder Disease, Gastrointestinal Bleed, Esophageal Varices, Loza's Esophagus, Colitis, Ulcerative Colitis, Diverticulitis, Diverticulosis, Irritable Bowel, Crohn's Disease, Hiatal Hernia, Hemorrhoids, Gastroesophageal Reflux Disease or Obesity GENITOURINARY: Negative Genitourinary Disorders, Renal Disease, Kidney Stones, Polycystic Kidney Disease, Neurogenic Bladder, Inguinal Hernia, Dialysis or Benign Prostatic Hyperplasia ENT: Negative Cataracts, Glaucoma, Blind, Retinal Detachment, Macular Degeneration, Ear Infection, Deafness or Eye Prosthesis ENDOCRINE: Negative Endocrine Disorders, Diabetes Mellitus Type 1, Diabetes Mellitus Type 2, Hypoglycemia, [place]'s Syndrome, [place]'s Disease, Hyperthyroidism, Hypothyroidism, Parathyroid Disease, Pituitary Disease, Systemic Lupus Erythematosus, Syndrome of Inappropriate Antidiuretic Hormone (SIADH), Adrenal Disease or Graves' Disease HEMATOLOGIC: Negative Blood Disorders, Anemia, Leukemia, Hemophilia, Thalassemia, Sickle Cell Disease or Clotting Problems OTHER HISTORY: Negative Autoimmune Disease Family History FAMILY HISTORY: Negative Family Psychiatric Problems, Family Respiratory Disorders, Family Cardiac Disorders, Family Gastrointestinal Problems, Family Cancer, Family Surgery or Family Anesthesia Reaction Surgical History SURGICAL: Negative Pacemaker Social History SMOKING STATUS: Never smoker SUBSTANCE USE: former substance user and marijuana (quit 1 month ago ) ED Exam Narrative Physical exam: 24-year-old male, moderate acute distress secondary to significant emesis. Patient is currently retching with minimal return. Friend is answering all of his questions for him. She denies fever or chills or diarrhea. He has had significant vomiting, epigastric abdominal pain. Lungs are clear. Regular rate and rhythm without murmurs. Vital signs are stable with a blood pressure 132/82, pulse 100, respirations 20, temperature 98.3, O2 sat 98% on room air. No others are ill at home with similar symptoms. Course Quality Measures none Orders Category Date Time Status IV [Insert IV] NOW Care 03/26/25 13:17 Active NPO STAT Care 03/26/25 13:14 Active US abdomen Stat Exams 03/26/25 13:14 Completed Amylase Stat Lab 03/26/25 13:35 Completed CBC Stat Lab 03/26/25 13:35 Completed Comprehensive Metabolic Panel Stat Lab 03/26/25 13:35 Completed Drug Screen,Urine Stat Lab 03/26/25 15:44 Completed Lipase Stat Lab 03/26/25 13:35 Completed Magnesium Stat Lab 03/26/25 13:35 Completed Phosphorous Stat Lab 03/26/25 13:35 Completed Urinalysis Stat Lab 03/26/25 15:44 Completed Urine Culture Stat Lab 03/26/25 15:44 Received DiphenhydrAMINE INJ [Benadryl Inj] Med 03/26/25 16:27 Discontinued 50 mg IVP X1 ONE Haloperidol Lactate [Haldol Inj] Med 03/26/25 16:27 Discontinued 10 mg IM X1 ONE Ondansetron Inj [Zofran Inj] Med 03/26/25 13:17 Discontinued 4 mg IVP X1 ONE Sodium Chloride 0.9% 1000 ml [Ns] 1,000 ml Med 03/26/25 13:17 Discontinued IV 999 mls/hr Sodium Chloride 0.9% 1000 ml [Ns] 1,000 ml Med 03/26/25 16:17 Active IV 999 mls/hr Vital Signs Vital signs: Vital Signs Temperature 98.3 F 03/26/25 13:04 Pulse Rate 100 03/26/25 13:04 Respiratory Rate 20 03/26/25 13:04 Blood Pressure 132/82 H 03/26/25 13:04 Pulse Oximetry (%) 98 03/26/25 13:04 Oxygen Delivery Method Room Air 03/26/25 13:04 Abdominal Pain MDM Patient data External records reviewed:: [facility] previous records Clinical information provided by:: friend Social determinants that could affect healthcare access:: none Patient has the following chronic illnesses:: Substance Use disorder How is presenting disease/condition affected by chronic disease/condition?: exacerbated by Evaluation data The following diagnostics were reviewed and interpreted by me:: lab results Lab and/or radiology exams considered but not ordered:: N/A Medications / Prescriptions Medication administrations:: Medication Administration History Sodium Chloride (Ns) 1,000 mls @ 999 mls/hr IV .Q1H1M ONE Stop: 03/26/25 17:17 Last Admin: 03/26/25 16:30 Dose: 999 mls/hr Documented By: JOANIE Discontinued Medications Diphenhydramine HCl (Diphenhydramine Inj 50 Mg/Ml Vial) 50 mg IVP X1 ONE Stop: 03/26/25 16:28 Last Admin: 03/26/25 16:38 Dose: 50 mg Documented By: JOANIE Haloperidol Lactate (Haloperidol Lact Inj 5 Mg/Ml Vial) 10 mg IM X1 ONE Stop: 03/26/25 16:28 Last Admin: 03/26/25 16:38 Dose: 10 mg Documented By: JOANIE Sodium Chloride (Ns) 1,000 mls @ 999 mls/hr IV .Q1H1M ONE Stop: 03/26/25 14:17 Last Infusion: 03/26/25 15:08 Dose: Infused Documented By: Admin: 03/26/25 13:44 Dose: 999 mls/hr Documented By: JOHNNIE Ondansetron HCl (Ondansetron Inj 2 Mg/Ml Inj 2 Ml) 4 mg IVP X1 ONE; Protocol Stop: 03/26/25 13:18 Last Admin: 03/26/25 13:41 Dose: 4 mg Documented By: JOHNNIE Discharge Plan Plan Patient Disposition: HOME (Self Care) Discharge Disposition comment: Stable and improved Prescriptions/Referrals Prescriptions/Med Rec: New prochlorperazine maleate [Compazine] 10 mg tablet 10 mg PO Q8H PRN (Reason: nausea and vomiting) Qty: 20 0RF Rx Instructions: Do not take with metoclopramide/Reglan. No Action metoclopramide HCl [Reglan] 10 mg tablet 10 mg PO Q6H PRN (Reason: nausea and vomiting) Qty: 20 0RF azithromycin [Zithromax Z-Jimbo] 250 mg tablet See Rx Instructions .ROUTE .COMPLEX Qty: 6 0RF Rx Instructions: For 250 mg dose pack: take 500 mg today (day 1), then 250 mg for 4 days (days 2-5) ondansetron 4 mg tablet,disintegrating 4 mg PO Q8H PRN (Reason: nausea and vomiting) Qty: 14 0RF promethazine 25 mg tablet 25 mg PO TID PRN (Reason: nausea and vomiting) Qty: 14 0RF Rx Instructions: Please do not take while taking metoclopramide Excedrin Tension Headache 500-65 mg tablet 1 tab PO Q6H PRN (Reason: pain) Qty: 30 0RF ibuprofen 600 mg tablet 600 mg PO Q6H Qty: 30 0RF Referrals: Carl Art MD [Primary Care Provider] - In 1 week Problem List Clinical Impression: Cannabinoid hyperemesis syndrome, Vomiting in adult patient Patient/Caregiver Discharge Instructions Education Materials: ED Diet for Vomiting or ..., ED Vomiting (Adult) Additional Instructions: Stop using cannabis. Follow-up with your primary care physician in 24 to 48 hours. Return to the ED for any new or worsening symptoms. Print Language: Lebanese Stand Alone Forms: [employer] Award Info., Patient Portal Info Letter PA/PLUMBING SERVICE TECHNICIAN Supervising Physician PA/PLUMBING SERVICE TECHNICIAN Supervising Physician: Dr Crespo
[2025-03-26 17:17] VITALS: BP 105/75; PULSE 78; RESP 18; TEMP 36.5; O2SAT 99
== END 2025-03-26 17:18 | disposition home or self-care (01) ==
PROVIDERS: Physician Assistant; Emergency Provider Emergency Medicine; PCP Family Medicine
DX: R11.10 Vomiting, unspecified (principal); F12.90 Cannabis use, unspecified, uncomplicated; R10.13 Epigastric pain
CPT/HCPCS: 36415; 76700; 80053; 80307; 81001; 82150; 83690; 83735; 84100; 85025; 87086; 96360; 96372; 96374; 96375; 99284; J1200; J1630; J2405; J7030

== ENCOUNTER → 2025-04-05 | Outpatient (CLI) | payer OTHER, SELFPAY ==
--- NOTE | 2025-04-05 15:00 | XR_ITS ---
Examination: CT abdomen and pelvis without contrast. Coronal 3-D reconstructions. Sagittal 2-D reconstructions. Date and time of exam:April 05, 2025 at 1459 hours Comparison March 05, 2025 INDICATIONS: Nausea vomiting beginning 2 months ago CTDI: vol (mGy): 4.11 DLP: (mGycm): 231 Technique: Axial images of the abdomen have been obtained, 3 mm slice thickness Intravenous contrast material has not been administered. Low dose protocols were performed. One or more of the following dose reduction techniques were used; automated exposure control, adjustment of the mA and/or KV according to patient size, use of iterative reconstruction technique. Findings: No focal liver or splenic lesions No gallstones No pancreatic mass No renal or ureteral calculi Normal appendix No bowel obstruction or diverticulitis Normal prostate Contracted urinary bladder The osseous structures are intact IMPRESSION: No acute process in the abdomen or pelvis
== END | disposition home or self-care (01) ==
LOC: CCTX 14:45
PROVIDERS: PCP Internal Medicine
DX: R11.2 Nausea with vomiting, unspecified (principal); K52.9 Noninfective gastroenteritis and colitis, unspecified; R10.0 Acute abdomen
CPT/HCPCS: 74176

== ENCOUNTER 2025-04-13 13:30 | Emergency (ER) | payer OTHER, MEDICAID, SELFPAY ==
[2025-04-13 13:44] VITALS: BP 105/65; PULSE 67; RESP 20; TEMP 36.6; O2SAT 98; BMI 20.1
[2025-04-13 14:23] LABS: Basophils % (Auto) 0 % (0-2.5); Eosinophils % (Auto) 0 % (0-10); Hematocrit 40.2 % (41.0-53.0); Immature Granulocytes % (Auto) 0 % (0-0); Immature Granulocytes Auto 0.03 Thou/mm3 (0.00-0.00); Lymphocytes # (Auto) 1.5 Thou/mm3 (1.0-4.8); Lymphocytes % (Auto) 18 % (10-50); Mean Corpuscular HGB Conc 34.8 g/dl (31.0-37.0); Mean Corpuscular Hemoglobin 29.4 pg (25.0-35.0); Mean Corpuscular Volume 85 fL (80-100); Monocytes # (Auto) 0.2 Thou/mm3 (0.0-0.8); Monocytes % (Auto) 3 % (0-12); Neutrophils # (Auto) 6.6 Thou/mm3 (1.8-7.7); Neutrophils % (Auto) 79 % (37-80); Nucleated Red Blood Cell % 0 /100 WBC (0); Platelet Count 297 Thou/mm3 (140-440); Red Blood Count 4.76 Miln/mm3 (4.50-5.90); White Blood Count 8.5 Thou/mm3 (3.8-10.6)
--- NOTE | 2025-04-13 14:23 | EKG_ITS ---
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
--- NOTE | 2025-04-13 14:23 | PD.EDNV ---
Nausea/Vomit./Diarrhea-RME/HPI General Chief complaint: Nausea/Vomiting/Diarrhea Stated complaint: Vomiting X 3 days, palpitations Time Seen by Provider: 04/13/25 13:40 Arrival date/time: 04/13/25 13:30 Limitations: no limitations RME / HPI RME / HPI Narrative: 24-year-old male presents for evaluation of persistent vomiting x 3 days. Patient endorses diffuse abdominal pain and loose stools. Patient denies fever, chills, CP, shortness of breath, cough, hemoptysis, rash. Patient has known history of cannabinoid hyperemesis for which she has pending outpatient GI consultation (patient does not recall date of appointment). Patient reports last use of THC x 1 month ago. Denies known sick contacts, recent travel, antibiotic use. Related Data Previous Rx's ?Medication ?Instructions ?Recorded metoclopramide HCl 10 mg tablet 10 mg PO Q6H PRN nausea and 06/07/22 (Reglan) vomiting #20 tabs promethazine 25 mg tablet 25 mg PO TID PRN nausea and 10/21/22 vomiting #14 tabs azithromycin 250 mg tablet See Rx Instructions PO .COMPLEX #6 10/31/24 (Zithromax Z-Jimbo) tabs acetaminophen-caffeine 500 mg-65 1 tab PO Q6H PRN pain #30 tabs 12/12/24 mg tablet (Excedrin Tension Headache) ibuprofen 600 mg tablet 600 mg PO Q6H #30 tabs 12/12/24 ondansetron 4 mg disintegrating 4 mg PO Q8H PRN nausea and 03/05/25 tablet vomiting #14 tabs prochlorperazine maleate 10 mg 10 mg PO Q8H PRN nausea and 03/26/25 tablet (Compazine) vomiting #20 tabs ondansetron 4 mg disintegrating 4 mg PO Q8H PRN nausea and 04/13/25 tablet vomiting #14 tabs Allergies Allergy/AdvReac Type Severity Reaction Status Date / Time marijuana (cannabis) Allergy Unknown Vomiting Verified 04/13/25 13:36 Review of Systems Constitutional Constitutional: Denies body ache(s), Denies chills, Denies fatigue, Denies fever(s), Denies headache(s), Reports poor appetite, Denies night sweats, Denies weakness and Denies weight loss Eyes Eyes: Denies blurry vision and Denies change in vision ENT Ears, Nose, Mouth, and Throat: Denies headache(s), Denies neck pain and Denies sore throat Cardiovascular Cardiovascular: Denies chest pain, Denies dyspnea and Denies leg edema Respiratory Respiratory: Denies cough, Denies dyspnea and Denies wheezing Gastrointestinal Gastrointestinal: Reports abdominal pain, Reports change in stool character, Reports diarrhea, Denies early satiety, Denies melena, Reports nausea and Reports vomiting Genitourinary Genitourinary: Denies dysuria and Denies hematuria Musculoskeletal Musculoskeletal: Denies back pain, Denies muscle cramps, Denies muscle weakness, Denies neck pain and Denies numbness Integumentary/Breasts Skin/Breast: Denies jaundice and Denies rash Neurologic Neurologic: Denies headache(s), Denies numbness and Denies weakness Endocrine Endocrine: Denies fatigue Allergic/Immunologic Allergic/Immunologic: Denies wheezing Past Medical History Past Medical History CARDIAC: Negative Cardiac Disorders, Myocardial Infarction, Cardiac Arrhythmia, Atrial Fibrillation, Angina, Heart Murmur, Coronary Artery Disease, Atherosclerotic Heart Disease, Peripheral Vascular Disease, Hypercholesterolemia, Aneurysm, Congestive Heart Failure, Congenital Heart Disease, Valvular Heart Disease, Rheumatic Fever, Cardiomyopathy, Edema, Pericarditis, Cellulitis, Deep Vein Thrombosis, Hypertension, Hypotension or Varicose Veins RESPIRATORY: Negative Chronic Obstructive Pulmonary Disease (COPD) or Asthma GASTROINTESTINAL: Positive Gastrointestinal Disorders (gastritis) and Ulcer; Negative Cirrhosis, Pancreatitis, Celiac Disease, Gall Bladder Disease, Gastrointestinal Bleed, Esophageal Varices, Loza's Esophagus, Colitis, Ulcerative Colitis, Diverticulitis, Diverticulosis, Irritable Bowel, Crohn's Disease, Hiatal Hernia, Hemorrhoids, Gastroesophageal Reflux Disease or Obesity GENITOURINARY: Negative Genitourinary Disorders, Renal Disease, Kidney Stones, Polycystic Kidney Disease, Neurogenic Bladder, Inguinal Hernia, Dialysis or Benign Prostatic Hyperplasia ENT: Negative Cataracts, Glaucoma, Blind, Retinal Detachment, Macular Degeneration, Ear Infection, Deafness or Eye Prosthesis ENDOCRINE: Negative Endocrine Disorders, Diabetes Mellitus Type 1, Diabetes Mellitus Type 2, Hypoglycemia, [place]'s Syndrome, [place]'s Disease, Hyperthyroidism, Hypothyroidism, Parathyroid Disease, Pituitary Disease, Systemic Lupus Erythematosus, Syndrome of Inappropriate Antidiuretic Hormone (SIADH), Adrenal Disease or Graves' Disease HEMATOLOGIC: Negative Blood Disorders, Anemia, Leukemia, Hemophilia, Thalassemia, Sickle Cell Disease or Clotting Problems OTHER HISTORY: Negative Autoimmune Disease Family History FAMILY HISTORY: Positive Family Cardiac Disorders; Negative Family Psychiatric Problems, Family Respiratory Disorders, Family Gastrointestinal Problems, Family Cancer, Family Surgery or Family Anesthesia Reaction Surgical History SURGICAL: Negative Pacemaker Social History SMOKING STATUS: Former smoker SUBSTANCE USE: former substance user and marijuana (quit 1 month ago ) ED Exam General Limitations: Present no limitations General appearance: Present other (Actively vomiting in the ED.) Head Head exam: Present atraumatic and normocephalic Eye Eye exam: Present normal appearance, PERRL and EOMI; Absent scleral icterus ENT ENT exam: Present normal oropharynx and mucous membranes moist Neck Neck exam: Present normal inspection and full ROM Chest Chest inspection: Present normal inspection and symmetric chest wall rise Respiratory Respiratory exam: Present normal lung sounds bilaterally; Absent respiratory distress Cardiovascular Cardiovascular exam: Present tachycardia Abdominal Exam Abdominal exam: Present soft; Absent distention, tenderness, guarding, rebound or rigidity Extremities Exam Extremities exam: Present normal inspection and full ROM Back Exam Back exam: Present normal inspection and full ROM; Absent CVA tenderness (R) or CVA tenderness (L) Neurological Exam Neurological exam: Present alert Psychiatric Psychiatric exam: Present agitated Skin Skin exam: Present warm and dry Course Quality Measures none Orders Category Date Time Status EKG (ED ONLY) *Do not use* NOW Care 04/13/25 14:23 Completed Insert IV NOW Care 04/13/25 13:53 Completed EKG (ED Only) Stat Exams 04/13/25 14:23 Draft CBC Stat Lab 04/13/25 14:09 Completed CMP [Comprehensive Metabolic Panel] Stat Lab 04/13/25 14:09 Completed Drug Screen,Urine Stat Lab 04/13/25 17:28 Completed Lipase Stat Lab 04/13/25 14:09 Completed Magnesium Stat Lab 04/13/25 14:09 Completed UA, C/S IF [Urinalysis, C/S if Indicated] Stat Lab 04/13/25 17:28 Completed DiphenhydrAMINE INJ [Benadryl Inj] Med 04/13/25 13:54 Discontinued 25 mg IVP X1 ONE Haloperidol Lactate [Haldol Inj] Med 04/13/25 15:33 Discontinued 5 mg IM X1 ONE Ondansetron Inj [Zofran Inj] Med 04/13/25 13:54 Discontinued 4 mg IVP X1 ONE Sodium Chloride 0.9% 1000 ml [Ns] 1,000 ml Med 04/13/25 13:54 Discontinued IV 999 mls/hr Reevaluation(s) Reevaluation #1: Patient is resting comfortably in room. Emesis resolved. Vital signs reassuring. Nontoxic-appearing. Appropriate for outpatient follow-up with GI as planned. Time: 17:13 Vital Signs Vital signs: Vital Signs Temperature 97.9 F 04/13/25 13:44 Pulse Rate 67 04/13/25 13:44 Respiratory Rate 20 04/13/25 13:44 Blood Pressure 105/65 04/13/25 13:44 Pulse Oximetry (%) 98 04/13/25 13:44 Oxygen Delivery Method Room Air 04/13/25 13:44 Pulse ox 98% on room air, within normal limits. Nausea/Vomiting/Diarrhea MDM Narrative MDM Narrative:: 24-year-old male presented for nausea vomiting and diffuse abdominal pain. Patient actively vomiting in the ED. Vital signs reassuring. Patient nontoxic-appearing with no evidence of endorgan damage and no leukocytosis, therefore less concern for sepsis. Lipase within normal limits therefore less concern for pancreatitis. Patient denied recent travel and known sick contacts therefore less concern for viral gastroenteritis at this time. More likely cannabinoid hyperemesis (urine tox screen positive for cannabinoid) for which the patient has been seen in the department previously. Patient's emesis was improved following IV fluids and IV antiemetics. Ultimately the patient was discharged home with plan to follow-up with GI outpatient this month. Patient was stable at the time of discharge. Patient data External records reviewed:: [facility] previous records Clinical information provided by:: patient Social determinants that could affect healthcare access:: substance use Patient has the following chronic illnesses:: Marijuana use. How is presenting disease/condition affected by chronic disease/condition?: caused by Evaluation data The following diagnostics were reviewed and interpreted by me:: lab results Lab and/or radiology exams considered but not ordered:: Considered not ordered. Interpretation Summary: No leukocytosis. No anemia. Mild hyperglycemia. Mild elevation in AST. No evidence of endorgan damage. Crystals present in urine but no sign of infection or gross hematuria. Medications / Prescriptions Medications / Prescriptions considered but not ordered:: Rx given. Medication administrations:: Medication Administration History Discontinued Medications Diphenhydramine HCl (Diphenhydramine Inj 50 Mg/Ml Vial) 25 mg IVP X1 ONE Stop: 04/13/25 13:55 Last Admin: 04/13/25 14:57 Dose: 25 mg Documented By: BAY Haloperidol Lactate (Haloperidol Lact Inj 5 Mg/Ml Vial) 5 mg IM X1 ONE Stop: 04/13/25 15:34 Last Admin: 04/13/25 15:58 Dose: 5 mg Documented By: NOE Sodium Chloride (Ns) 1,000 mls @ 999 mls/hr IV .Q1H1M ONE Stop: 04/13/25 14:54 Last Infusion: 04/13/25 16:03 Dose: Infused Documented By: Admin: 04/13/25 14:59 Dose: 999 mls/hr Documented By: BAY Ondansetron HCl (Ondansetron Inj 2 Mg/Ml Inj 2 Ml) 4 mg IVP X1 ONE; Protocol Stop: 04/13/25 13:55 Last Admin: 04/13/25 14:58 Dose: 4 mg Documented By: BAY Rx given. Consultations Consultation(s) initiated? (list below): No Diagnosis Nausea Differential Diagnosis: traveler's diarrhea, gastroenteritis, drug-induced nausea and vomiting, dehydration and other Most likely diagnosis given after review of the tests above:: Cannabinoid hyperemesis. Admission Indicated Admission indicated?: not indicated Admission Request Was there a request for admission?: No Disposition Plan Disposition Plan: Discharge Discharge Attestation Discharge Attestation: The patient and all family members were given an opportunity to ask questions and understood the discharge instructions. Discharge instructions specifically effects, indications for sooner follow up or return to the emergency department, and the expected course of current diagnosis. Patient condition: Stable Discharge Plan Plan Patient Disposition: HOME (Self Care) Discharge Disposition comment: stable Prescriptions/Referrals Prescriptions/Med Rec: New ondansetron 4 mg tablet,disintegrating 4 mg PO Q8H PRN (Reason: nausea and vomiting) Qty: 14 0RF No Action metoclopramide HCl [Reglan] 10 mg tablet 10 mg PO Q6H PRN (Reason: nausea and vomiting) Qty: 20 0RF azithromycin [Zithromax Z-Jimbo] 250 mg tablet See Rx Instructions .ROUTE .COMPLEX Qty: 6 0RF Rx Instructions: For 250 mg dose pack: take 500 mg today (day 1), then 250 mg for 4 days (days 2-5) ondansetron 4 mg tablet,disintegrating 4 mg PO Q8H PRN (Reason: nausea and vomiting) Qty: 14 0RF prochlorperazine maleate [Compazine] 10 mg tablet 10 mg PO Q8H PRN (Reason: nausea and vomiting) Qty: 20 0RF Rx Instructions: Do not take with metoclopramide/Reglan. promethazine 25 mg tablet 25 mg PO TID PRN (Reason: nausea and vomiting) Qty: 14 0RF Rx Instructions: Please do not take while taking metoclopramide Excedrin Tension Headache 500-65 mg tablet 1 tab PO Q6H PRN (Reason: pain) Qty: 30 0RF ibuprofen 600 mg tablet 600 mg PO Q6H Qty: 30 0RF Referrals: Blossom Augustin FNP [Primary Care Provider] - In 1 week Problem List Clinical Impression: Cannabinoid hyperemesis syndrome Patient/Caregiver Discharge Instructions Education Materials: ED Diet for Vomiting or ..., ED Vomiting (Adult) Additional Instructions: Follow-up with outpatient GI as planned. Take Zofran every 6 hours as needed for nausea and vomiting. Continue to abstain from marijuana use. Follow-up with primary care within 2 to 3 days for reevaluation. Return to the ED if your symptoms worsen or change. Print Language: Fijian Stand Alone Forms: [employer]zam Award Info., Patient Portal Info Letter IFTIKHAR/ROSALIND Supervising Physician IFTIKHAR/ROSALIND Supervising Physician: Dr. Sumner
[2025-04-13 14:43] LABS: Alanine Aminotransferase 31 U/L (10-49); Alkaline Phosphatase 52 U/L (46-116); Anion Gap 10 (7-16); Aspartate Amino Transferase 42 U/L (0-34); BUN/Creatinine Ratio 11 Ratio (12-20); Bilirubin,Total 2.9 mg/dL (0.3-1.2); Blood Urea Nitrogen 10 mg/dL (9-23); Calcium 10.1 mg/dL (8.3-10.6); Calcium (Corrected) 10.1 mg/dL (8.5-10.1); Chloride 105 mMol/L (98-107); Creatinine (Component) 0.9 mg/dL (0.6-1.3); Estimated Creatinine Clearance 103.2 mL/min (>60); Globulin 2.5 gm/dL (2.3-3.5); Glucose 128 mg/dL (74-106); Lipase 26 U/L (12-53); Magnesium 1.6 mg/dL (1.6-2.6); Osmolality,Calculated 278 (275-295); Potassium 3.6 mMol/L (3.4-5.1); Sodium 139 mMol/L (136-145); Total Protein 7.5 gm/dL (5.7-8.2); eGFR > 60 See Note
[2025-04-13 14:56] VITALS: BP 127/75; PULSE 65; RESP 14; TEMP 37.1; O2SAT 100
[2025-04-13] MEDS: DiphenhydrAMINE INJ 50 MG/ML VIAL 25 MG IVP (14:57)
[2025-04-13] MEDS: ONDANSETRON INJ 2 MG/ML INJ 2 ML 4 MG IVP (14:58)
[2025-04-13] MEDS: SODIUM CHLORIDE 0.9% 1000 ML 1,000 ML 999 ML IV (14:59)
[2025-04-13 15:51] VITALS: BP 121/63; PULSE 99; RESP 20; TEMP 37.1; O2SAT 95
[2025-04-13] MEDS: HALOPERIDOL LACT INJ 5 MG/ML VIAL IM (15:58)
[2025-04-13 17:20] VITALS: BP 110/71; PULSE 85; RESP 16; TEMP 36.8; O2SAT 98
[2025-04-13 17:40] LABS: Collection Type, Urine Clean Catch; RBC,Urine 0 /hpf (0-3); Squamous Epithelial Cell,Urine 0 /hpf (0-5)
[2025-04-13 17:53] LABS: Amorphous Crystals,Urine Present (Absent); Bilirubin,Urine Negative (Negative); Blood,Urine Negative (Negative); Clarity,Urine Turbid (Clear/Hazy); Color,Urine Yellow (Lt Yel-Yel); Culture Indicated,Urine Not Indicated; Glucose, Urine Negative (Negative); Ketones,Urine 1+ (Negative); Leukocyte Esterase,Urine Negative (Negative); Nitrite,Urine Negative (Negative); PH,Urine 8.5 (5.0-7.0); Protein,Urine Trace (Neg - Trace); Specific Gravity,Urine 1.022 (1.001-1.035); Urobilinogen,Urine Negative mg/dL (0.0-1.0); WBC,Urine 2 /hpf (0-5)
[2025-04-13 17:59] LABS: Amphetamine/Methamp Scrn,U Negative (Negative); Barbiturate Screen,Urine Negative (Negative); Benzodiazepines Screen,Urine Negative (Negative); Benzoylecgonine Screen, Ur Negative (Negative); Fentanyl Screen,Urine Negative (Negative); Opiate Screen,Urine Negative (Negative); THC Screen,Urine Positive (Negative)
[2025-04-13 18:21] VITALS: BP 106/58; PULSE 86; RESP 18; TEMP 36.8; O2SAT 98
== END 2025-04-13 18:28 | disposition home or self-care (01) ==
PROVIDERS: Physician Assistant; Emergency Provider Emergency Medicine; PCP Student in an Organized Health Care Education/Training Program
DX: R11.2 Nausea with vomiting, unspecified (principal); F12.90 Cannabis use, unspecified, uncomplicated; R00.1 Bradycardia, unspecified
CPT/HCPCS: 36415; 80053; 80307; 81001; 83690; 83735; 85025; 93005; 96361; 96372; 96374; 96375; 99284; J1200; J1630; J2405; J7030

== ENCOUNTER 2025-06-01 20:15 | Emergency (ER) | payer OTHER, MEDICAID, SELFPAY ==
[2025-06-01 20:16] VITALS: BMI 19.2
[2025-06-01 20:27] VITALS: BP 127/58; PULSE 108; RESP 20; TEMP 37.6; O2SAT 98
--- NOTE | 2025-06-01 20:36 | XR_ITS ---
Examination: Abdomen sonogram, Limited Date and time of exam: June 01, 2025 2103 hours INDICATIONS: Right upper abdominal pain and nausea beginning 3 days ago Technique: Real-time montalvo scale transabdominal sonographic images of the upper abdomen obtained. Findings: Minimal gallbladder sludge No gallstones Normal gallbladder wall Normal common bile duct 0.2 cm Pancreatic head 1.6 cm Liver 15.4 cm no liver lesions Normal hepatopedal portal venous flow Patent IVC IMPRESSION: Minimal gallbladder sludge Negative for cholelithiasis, negative for cholecystitis
--- NOTE | 2025-06-01 20:36 | XR_ITS ---
Examination: CT abdomen and pelvis without contrast. Coronal 3-D reconstructions. Sagittal 2-D reconstructions. Date and time of exam:June 01, 2025, 2050 hours Comparison April 05, 2025 INDICATIONS: Flank pain beginning 3 days ago CTDI: vol (mGy): 4.03 DLP: (mGycm): 236 Technique: Axial images of the abdomen have been obtained, 3 mm slice thickness Intravenous contrast material has not been administered. Low dose protocols were performed. One or more of the following dose reduction techniques were used; automated exposure control, adjustment of the mA and/or KV according to patient size, use of iterative reconstruction technique. Findings: No focal liver or splenic lesions No gallstones No pancreatic mass No renal or ureteral calculi, no hydronephrosis Aorta normal size Normal appendix No bowel obstruction No bladder mass or bladder calculi No prostatomegaly IMPRESSION: No renal or ureteral calculi, no hydronephrosis No bladder mass or bladder calculi Normal appendix
--- NOTE | 2025-06-01 20:36 | PD.EDABDPN ---
ED Abdominal Pain RME/HPI General Chief Complaint: Back Pain/Injury Stated complaint: RONEY KIDNEY PAIN X3DAYS Time seen by provider: 06/01/25 20:41 Arrival date/time: 06/01/25 20:15 RME / HPI RME / HPI narrative: This section includes all my notes and documentations, including HPI, PE, and ED course. Kareem Sumner MD HPI: 24 y/o male here with bilateral back/flank pain today. Has trouble localizing further. Movement and certain positions seem to worsen the pain. Has been vomiting for the past few days probably due to marijuana. He admits to using large amounts of marijuana regularly. And reports a large marijuana use causes vomiting. Was seen at emergency room facility last night. Was discharged with supportive care. No other complaints. ROS: All negative except as documented in HPI. Physical Exam: General: Alert and oriented. No acute distress when remaining still. Eyes: Conjunctivae and lids clear. ENT: No nasal congestion. Neck: Supple. Heart: RRR. Lungs: No respiratory distress. Good air movement. No rhonchi, wheezing, rales. Abdomen: Soft and nontender. Normal bowel sounds. No distension. No rebound or guarding. Back: No spinal tenderness. Skin: Warm and dry. Neuro: Alert and oriented X 3. I reviewed all diagnostic test results: My review of the US report is: Minimal gallbladder sludge. My review of the CT report is: NAD. Blood tests unremarkable. Covid/Influenza: Negative. At this point, diagnoses include: Musculoskeletal pain Treatment here included: IVF, Toradol 30 mg, Zofran 4 mg Halls much better. Recommended recommended more outpatient workup. Based on my best medical judgment, made decision no further evaluation or treatment indicated at this time. Patient understands and agrees to the discharge instructions customized and printed, see below. Discharge Instructions from Dr. Sumner printed for you: 1. Your CT scan and ultrasound and blood tests are all normal, including your kidneys. 2. Your bilateral back/flank pain is musculoskeletal pain from recent vomiting. 3. Apply ice or heat if helpful. Ibuprofen/Tylenol as needed. Topical lidocaine patches as needed. 4. To avoid cycles of vomiting, quit marijuana for good. 5. See a private doctor on 06/05/2025 for recheck. Ask to review all test results and official radiology reports, to make sure you receive all necessary follow-ups and monitoring, including repeat bilirubin. 6. Seek immediate medical care with worsening or with any concerns. Kareem Sumner MD Related Data Previous Rx's ?Medication ?Instructions ?Recorded metoclopramide HCl 10 mg tablet 10 mg PO Q6H PRN nausea and 06/07/22 (Reglan) vomiting #20 tabs promethazine 25 mg tablet 25 mg PO TID PRN nausea and 10/21/22 vomiting #14 tabs azithromycin 250 mg tablet See Rx Instructions PO .COMPLEX #6 10/31/24 (Zithromax Z-Jimbo) tabs acetaminophen-caffeine 500 mg-65 1 tab PO Q6H PRN pain #30 tabs 12/12/24 mg tablet (Excedrin Tension Headache) ibuprofen 600 mg tablet 600 mg PO Q6H #30 tabs 12/12/24 ondansetron 4 mg disintegrating 4 mg PO Q8H PRN nausea and 03/05/25 tablet vomiting #14 tabs prochlorperazine maleate 10 mg 10 mg PO Q8H PRN nausea and 03/26/25 tablet (Compazine) vomiting #20 tabs ondansetron 4 mg disintegrating 4 mg PO Q8H PRN nausea and 04/13/25 tablet vomiting #14 tabs ondansetron 4 mg disintegrating 4 mg PO TID PRN nausea and 06/01/25 tablet vomiting 30 days #10 tabs Allergies Allergy/AdvReac Type Severity Reaction Status Date / Time marijuana (cannabis) Allergy Unknown Vomiting Verified 04/13/25 13:36 Review of Systems Review of Systems Systems Reviewed: All systems reviewed, normal except as documented Past Medical History Past Medical History GASTROINTESTINAL: Positive Gastrointestinal Disorders and Ulcer Social History SMOKING STATUS: Former smoker SUBSTANCE USE: former substance user and marijuana (quit 1 month ago ) ED Exam Narrative Physical exam: Refer to HPI Course Quality Measures none Orders Category Date Time Status Bedside COVID-19 Antigen Test NOW Care 06/01/25 20:34 Completed Bedside Influenza A&B Antigen Test NOW Care 06/01/25 20:35 Completed Saline [Insert IV] NOW Care 06/01/25 20:[address] abdomen pelvis wo con Stat Exams 06/01/25 20:36 Completed US gall bladder Stat Exams 06/01/25 20:36 Completed Amylase Stat Lab 06/01/25 20:48 Completed Bilirubin,Direct Stat Lab 06/01/25 20:48 Completed CBC Stat Lab 06/01/25 20:48 Completed CMP [Comprehensive Metabolic Panel] Stat Lab 06/01/25 20:48 Completed Lipase Stat Lab 06/01/25 20:48 Completed Magnesium Stat Lab 06/01/25 20:48 Completed Ketorolac Inj [Toradol Inj] Med 06/01/25 20:35 Discontinued 30 mg IVP X1 ONE Ondansetron Inj [Zofran Inj] Med 06/01/25 20:35 Discontinued 4 mg IVP X1 ONE Sodium Chloride 0.9% 1000 ml [Ns] 1,000 ml Med 06/01/25 20:35 Discontinued IV 999 mls/hr Vital Signs Vital signs: Vital Signs Temperature 99.6 F 06/01/25 20:27 Pulse Rate 108 H 06/01/25 20:27 Respiratory Rate 20 06/01/25 20:27 Blood Pressure 127/58 L 06/01/25 20:27 Pulse Oximetry (%) 98 06/01/25 20:27 Oxygen Delivery Method Room Air 06/01/25 20:27 Abdominal Pain MDM MDM Narrative MDM Narrative:: Scribe Attestation: ICollette, am scribing for and in the presence of Dr. Sumner. Provider Notation: Although this document has been carefully reviewed, there may still be some phonetic and other typographical errors. These errors are purely grammatical due to imperfections in the software program and should not be construed in any way to compromise the substance of the patient's medical care during this visit. 24 y/o male here with bilateral back/flank pain today. Has trouble localizing further. Movement and certain positions seem to worsen the pain. Has been vomiting for the past few days probably due to marijuana. He admits to using large amounts of marijuana regularly. And reports a large marijuana use causes vomiting. Was seen at emergency room facility last night. Was discharged with supportive care. No other complaints. Patient data External records reviewed:: [facility] previous records (Reviewed prior ED records from 04/13/25. Patient was seen for Cannabinoid hyperemesis syndrome.) Clinical information provided by:: patient Social determinants that could affect healthcare access:: substance use (Marijuana) Patient has the following chronic illnesses:: Ulcer How is presenting disease/condition affected by chronic disease/condition?: exacerbated by Evaluation data The following diagnostics were reviewed and interpreted by me:: lab results and radiology exam(s) Lab and/or radiology exams considered but not ordered:: None Interpretation Summary: I reviewed all diagnostic test results: My review of the US report is: Minimal gallbladder sludge. My review of the CT report is: NAD. Blood tests unremarkable. Covid/Influenza: Negative. Medications / Prescriptions Medications or Prescriptions considered but not ordered:: None Medication administrations:: Medication Administration History Discontinued Medications Sodium Chloride (Ns) 1,000 mls @ 999 mls/hr IV .Q1H1M ONE Stop: 06/01/25 21:35 Last Infusion: 06/01/25 21:56 Dose: Infused Documented By: Admin: 06/01/25 20:46 Dose: 999 mls/hr Documented By: EF Ketorolac Tromethamine (Ketorolac Inj 30 Mg/Ml Vial) 30 mg IVP X1 ONE Stop: 06/01/25 20:36 Last Admin: 06/01/25 20:47 Dose: 30 mg Documented By: EF Ondansetron HCl (Ondansetron Inj 2 Mg/Ml Inj 2 Ml) 4 mg IVP X1 ONE; Protocol Stop: 06/01/25 20:36 Last Admin: 06/01/25 20:47 Dose: 4 mg Documented By: EF IVF, Toradol 30 mg, Zofran 4 mg Consultations Consultation(s) initiated? (list below): No Diagnosis Differential diagnosis abdominal pain: abdominal pain, acute appendicitis, calculus of kidney, constipation, diverticulitis, gastroenteritis, pancreatitis and small bowel obstruction Most likely diagnosis given after review of the tests above:: Musculoskeletal pain Admission Indicated Admission indicated?: not indicated Explain why admission is indicated or not indicated:: With significant improvement and no condition needing emergent intervention, there was no indication for admission. Admission Request Was there a request for admission?: No Disposition Plan Disposition Plan: Discharge Discharge Attestation Discharge Attestation: The patient and all family members were given an opportunity to ask questions and understood the discharge instructions. Discharge instructions specifically effects, indications for sooner follow up or return to the emergency department, and the expected course of current diagnosis. Patient condition: Stable Discharge Plan Plan Patient Disposition: HOME (Self Care) Prescriptions/Referrals Prescriptions/Med Rec: New ondansetron 4 mg tablet,disintegrating 4 mg PO TID PRN (Reason: nausea and vomiting) 30 Days Qty: 10 0RF No Action metoclopramide HCl [Reglan] 10 mg tablet 10 mg PO Q6H PRN (Reason: nausea and vomiting) Qty: 20 0RF azithromycin [Zithromax Z-Jimbo] 250 mg tablet See Rx Instructions .ROUTE .COMPLEX Qty: 6 0RF Rx Instructions: For 250 mg dose pack: take 500 mg today (day 1), then 250 mg for 4 days (days 2-5) ondansetron 4 mg tablet,disintegrating 4 mg PO Q8H PRN (Reason: nausea and vomiting) Qty: 14 0RF prochlorperazine maleate [Compazine] 10 mg tablet 10 mg PO Q8H PRN (Reason: nausea and vomiting) Qty: 20 0RF Rx Instructions: Do not take with metoclopramide/Reglan. ondansetron 4 mg tablet,disintegrating 4 mg PO Q8H PRN (Reason: nausea and vomiting) Qty: 14 0RF promethazine 25 mg tablet 25 mg PO TID PRN (Reason: nausea and vomiting) Qty: 14 0RF Rx Instructions: Please do not take while taking metoclopramide Excedrin Tension Headache 500-65 mg tablet 1 tab PO Q6H PRN (Reason: pain) Qty: 30 0RF ibuprofen 600 mg tablet 600 mg PO Q6H Qty: 30 0RF Referrals: Temporary Provider,ED [Physician] - In 1 week Problem List Clinical Impression: Musculoskeletal pain Patient/Caregiver Discharge Instructions Discharge Activity: activity as tolerated Education Materials: ED Back Sprain/Strain Additional Instructions: Discharge Instructions from Dr. Sumner printed for you: 1. Your CT scan and ultrasound and blood tests are all normal, including your kidneys. 2. Your bilateral back/flank pain is musculoskeletal pain from recent vomiting. 3. Apply ice or heat if helpful. Ibuprofen/Tylenol as needed. Topical lidocaine patches as needed. 4. To avoid cycles of vomiting, quit marijuana for good. 5. See a private doctor on 06/05/2025. Ask to review all test results and official radiology reports, to make sure you receive all necessary follow-ups and monitoring, including repeat bilirubin. 6. Seek immediate medical care with worsening or with any concerns. Print Language: Citizen Of [place] Stand Alone Forms: [employer] Patient Portal Info Letter
[2025-06-01] MEDS: SODIUM CHLORIDE 0.9% 1000 ML 1,000 ML 999 ML IV (20:46)
[2025-06-01] MEDS: KETOROLAC INJ 30 MG/ML VIAL IVP (20:47)
[2025-06-01] MEDS: ONDANSETRON INJ 2 MG/ML INJ 2 ML 4 MG IVP (20:47)
[2025-06-01 21:03] LABS: Basophils # (Auto) 0.0 Thou/mm3 (0.0-0.2); Basophils % (Auto) 1 % (0-2.5); Eosinophils # (Auto) 0.0 Thou/mm3 (0.0-0.5); Eosinophils % (Auto) 0 % (0-10); Hematocrit 36.1 % (41.0-53.0); Hemoglobin 13.1 g/dL (13.5-16.0); Immature Granulocytes Auto 0.01 Thou/mm3 (0.00-0.00); Lymphocytes # (Auto) 2.4 Thou/mm3 (1.0-4.8); Lymphocytes % (Auto) 45 % (10-50); Mean Corpuscular HGB Conc 36.3 g/dl (31.0-37.0); Mean Corpuscular Hemoglobin 29.6 pg (25.0-35.0); Mean Corpuscular Volume 82 fL (80-100); Monocytes # (Auto) 0.4 Thou/mm3 (0.0-0.8); Monocytes % (Auto) 8 % (0-12); Neutrophils # (Auto) 2.4 Thou/mm3 (1.8-7.7); Neutrophils % (Auto) 46 % (37-80); Nucleated Red Blood Cell # 0.00 Thou/mm3 (0.00-0.00); Nucleated Red Blood Cell % 0 /100 WBC (0); Platelet Count 264 Thou/mm3 (140-440); RDW Standard Deviation 37.8 fL (35.1-43.9); Red Blood Count 4.43 Miln/mm3 (4.50-5.90); White Blood Count 5.3 Thou/mm3 (3.8-10.6)
[2025-06-01 21:58] VITALS: RESP 18
[2025-06-01 22:13] LABS: Alanine Aminotransferase 22 U/L (10-49); Albumin, Serum 5.1 gm/dL (3.5-5.0); Albumin/Globulin Ratio 1.8 (1.2-2.2); Alkaline Phosphatase 54 U/L (46-116); Anion Gap 12 (7-16); Aspartate Amino Transferase 46 U/L (0-34); BUN/Creatinine Ratio 6 Ratio (12-20); Bilirubin,Direct 0.4 mg/dL (0.0-0.3); Bilirubin,Total 4.6 mg/dL (0.3-1.2); Blood Urea Nitrogen < 5 mg/dL (9-23); Calcium 10.6 mg/dL (8.3-10.6); Calcium (Corrected) 10.6 mg/dL (8.5-10.1); Carbon Dioxide 24.3 mMol/L (20.0-31.0); Chloride 103 mMol/L (98-107); Creatinine (Component) 0.8 mg/dL (0.6-1.3); Estimated Creatinine Clearance 110.6 mL/min (>60); Globulin 2.8 gm/dL (2.3-3.5); Glucose 92 mg/dL (74-106); Magnesium 1.9 mg/dL (1.6-2.6); Osmolality,Calculated 274 (275-295); Potassium 3.3 mMol/L (3.4-5.1); Sodium 139 mMol/L (136-145); Total Protein 7.9 gm/dL (5.7-8.2); eGFR > 60 See Note
[2025-06-01 23:47] LABS: Amylase 63 U/L (30-118); Lipase 27 U/L (12-53)
== END 2025-06-01 21:59 | disposition home or self-care (01) ==
PROVIDERS: Emergency Provider Emergency Medicine
DX: M79.18 Myalgia, other site (principal); K82.8 Other specified diseases of gallbladder; R10.9 Unspecified abdominal pain
CPT/HCPCS: 36415; 74176; 76705; 80053; 80307; 81001; 82150; 82248; 83690; 83735; 85025; 96361; 96374; 96375; 99283; J1885; J2405; J7030

== ENCOUNTER 2025-06-23 10:58 | Emergency (ER) | payer OTHER, MEDICAID, SELFPAY ==
[2025-06-23 10:59] VITALS: BMI 19.3
[2025-06-23] MEDS: METOCLOPRAMIDE INJ 5 MG/ML VIAL 2 ML 10 MG IM (11:37)
[2025-06-23] MEDS: HALOPERIDOL LACT INJ 5 MG/ML VIAL IM (11:39)
--- NOTE | 2025-06-23 11:47 | PD.EDNV ---
Nausea/Vomit./Diarrhea-RME/HPI General Chief complaint: Nausea/Vomiting/Diarrhea Stated complaint: VOMITING FOR 3 DAYS Time Seen by Provider: 06/23/25 11:10 Arrival date/time: 06/23/25 10:58 RME / HPI RME / HPI Narrative: 24-year-old male patient was brought in by family for evaluation regarding vomiting. Patient has been having vomiting for the last 3 days, severity moderate. Patient cannot take anything down due to vomiting. Patient was seen here several times for marijuana related vomiting. Patient continued to be using marijuana on a daily basis. Denies any fever denies any abdominal pain. No medication was taken prior to arrival. Related Data Previous Rx's ?Medication ?Instructions ?Recorded metoclopramide HCl 10 mg tablet 10 mg PO Q6H PRN nausea and 06/07/22 (Reglan) vomiting #20 tabs promethazine 25 mg tablet 25 mg PO TID PRN nausea and 10/21/22 vomiting #14 tabs azithromycin 250 mg tablet See Rx Instructions PO .COMPLEX #6 10/31/24 (Zithromax Z-Jimbo) tabs acetaminophen-caffeine 500 mg-65 1 tab PO Q6H PRN pain #30 tabs 12/12/24 mg tablet (Excedrin Tension Headache) ibuprofen 600 mg tablet 600 mg PO Q6H #30 tabs 12/12/24 ondansetron 4 mg disintegrating 4 mg PO Q8H PRN nausea and 03/05/25 tablet vomiting #14 tabs prochlorperazine maleate 10 mg 10 mg PO Q8H PRN nausea and 03/26/25 tablet (Compazine) vomiting #20 tabs ondansetron 4 mg disintegrating 4 mg PO Q8H PRN nausea and 04/13/25 tablet vomiting #14 tabs ondansetron 4 mg disintegrating 4 mg PO TID PRN nausea and 06/01/25 tablet vomiting 30 days #10 tabs Allergies Allergy/AdvReac Type Severity Reaction Status Date / Time marijuana (cannabis) Allergy Severe Vomiting Verified 06/23/25 11:01 Review of Systems Review of Systems Narrative Review of Systems: Review of system reviewed and within normal limits except mentioned in HPI ED Exam Narrative Physical exam: VITAL SIGNS: Reviewed. GENERAL APPEARANCE: Alert and interactive, follows commands, no acute distress, HEAD AND FACE: Non-traumatic. ENT: PERRL, pink conjunctivitis, eyelid no trauma, Mucous membrane moist. NECK: Supple, nontender, no nuchal rigidity. CHEST: No tenderness, no crepitus, no paradoxical movement, no retractions. LUNGS: Clear, well ventilated, symmetric, no rales, no wheezing, no ronchi, no stridor, good breath sounds bilaterally. HEART: Regular rate, regular rhythm, no murmur, no gallops. ABDOMEN: Soft, positive bowel sounds, nondistended, no guarding, nontender, no rebound, no masses, RECTAL: Deferred. GENITAL: Deferred. NEUROLOGICAL: Gross motor function intact sensory function intact, Appropriate for age. MUSCULOSKELETAL: low back nontender, full range of motion. EXTREMITIES: Nontender, full range of motion. SKIN: Color pink, dry, no rash, no lacerations, no abrasions, no contusions. LYMPHATICS: Deferred. Course Quality Measures none Orders Category Date Time Status CBC [CBC] Stat Lab 06/23/25 11:31 Ordered CMP [Comprehensive Metabolic Panel] Stat Lab 06/23/25 11:31 Ordered Magnesium Stat Lab 06/23/25 11:31 Ordered DiphenhydrAMINE [Benadryl] Med 06/23/25 11:31 Discontinued 50 mg PO X1 ONE Haloperidol Lactate [Haldol Inj] Med 06/23/25 11:31 Discontinued 5 mg IM X1 ONE Metoclopramide Inj [Reglan Inj] Med 06/23/25 11:31 Discontinued 10 mg IM X1 ONE mg Hyd/Al Hyd/Renan Susp [Maalox Susp] Med 06/23/25 11:31 Discontinued 30 ml PO X1 ONE Nausea/Vomiting/Diarrhea MDM Narrative MDM Narrative:: 24-year-old male patient was brought in by family for evaluation regarding vomiting. Patient has been having vomiting for the last 3 days, severity moderate. Patient cannot take anything down due to vomiting. Patient was seen here several times for marijuana related vomiting. Patient continued to be using marijuana on a daily basis. Denies any fever denies any abdominal pain. No medication was taken prior to arrival. Patient received Haldol IM and Reglan IM, no more vomiting noted in the ED. Patient decided to AMA. Pt has normal mental status and adequate capacity to make medical decisions. Oriented x 4. The patient refuses evaluation and treatment and wants to be discharged. The risks have been explained to the patient, including progression of possible worsening of current disease, worsening illness, chronic pain, permanent disability and . The benefits of evaluation and treatment have also been explained, including the availability and proximity of nurses, physicians, monitoring, diagnostic testing, and treatments. The patient was able to understand and state the risks and benefits of AMA.Patient had the opportunity to ask questions about their medical condition. He left hospital against medical advice. Patient data External records reviewed:: None Clinical information provided by:: patient Social determinants that could affect healthcare access:: substance use Patient has the following chronic illnesses:: None How is presenting disease/condition affected by chronic disease/condition?: exacerbated by Evaluation data The following diagnostics were reviewed and interpreted by me:: lab results Lab and/or radiology exams considered but not ordered:: None Interpretation Summary: None Medications / Prescriptions Medications / Prescriptions considered but not ordered:: None Medication administrations:: Medication Administration History Discontinued Medications Al Hydrox/Mg Hydrox/Simethicone (Mg Hyd/Al Hyd/Renan (Maalox Reg) Susp 30 Ml Udc) 30 ml PO X1 ONE Stop: 06/23/25 11:32 Diphenhydramine HCl (Diphenhydramine 25 Mg Capsule) 50 mg PO X1 ONE Stop: 06/23/25 11:32 Haloperidol Lactate (Haloperidol Lact Inj 5 Mg/Ml Vial) 5 mg IM X1 ONE Stop: 06/23/25 11:32 Last Admin: 06/23/25 11:39 Dose: 5 mg Documented By: Metoclopramide HCl (Metoclopramide Inj 5 Mg/Ml Vial 2 Ml) 10 mg IM X1 ONE; Protocol Stop: 06/23/25 11:32 Last Admin: 06/23/25 11:37 Dose: 10 mg Documented By: Reglan, Haldol Maalox and Benadryl Consultations Consultation(s) initiated? (list below): No Diagnosis Nausea Differential Diagnosis: gastroenteritis, drug-induced nausea and vomiting and dehydration Most likely diagnosis given after review of the tests above:: Cannabinoid hyperemesis syndrome Admission Indicated Admission indicated?: not indicated Admission Request Was there a request for admission?: No Disposition Plan Disposition Plan: other (specify) (AMA) Discharge Plan Plan Patient Disposition: Left Against Medical Advice Prescriptions/Referrals Prescriptions/Med Rec: No Action metoclopramide HCl [Reglan] 10 mg tablet 10 mg PO Q6H PRN (Reason: nausea and vomiting) Qty: 20 0RF azithromycin [Zithromax Z-Jimbo] 250 mg tablet See Rx Instructions .ROUTE .COMPLEX Qty: 6 0RF Rx Instructions: For 250 mg dose pack: take 500 mg today (day 1), then 250 mg for 4 days (days 2-5) ondansetron 4 mg tablet,disintegrating 4 mg PO Q8H PRN (Reason: nausea and vomiting) Qty: 14 0RF prochlorperazine maleate [Compazine] 10 mg tablet 10 mg PO Q8H PRN (Reason: nausea and vomiting) Qty: 20 0RF Rx Instructions: Do not take with metoclopramide/Reglan. ondansetron 4 mg tablet,disintegrating 4 mg PO Q8H PRN (Reason: nausea and vomiting) Qty: 14 0RF ondansetron 4 mg tablet,disintegrating 4 mg PO TID PRN (Reason: nausea and vomiting) 30 Days Qty: 10 0RF promethazine 25 mg tablet 25 mg PO TID PRN (Reason: nausea and vomiting) Qty: 14 0RF Rx Instructions: Please do not take while taking metoclopramide Excedrin Tension Headache 500-65 mg tablet 1 tab PO Q6H PRN (Reason: pain) Qty: 30 0RF ibuprofen 600 mg tablet 600 mg PO Q6H Qty: 30 0RF Problem List Clinical Impression: Cannabinoid hyperemesis syndrome Patient/Caregiver Discharge Instructions Print Language: [place]
--- NOTE | 2025-06-23 12:06 | PC.NURSE ---
Patient came up to this junior copywriter and asked for paper to sign to leave . Joaquín stated he doesn't want to wait anymore and he's leaving . Risk vs benefits explained to patient including risk of . Patient encouraged to return to ED at any point. Patient signed AMA form and left ED at 12:03pm.
== END 2025-06-23 12:03 | disposition left against medical advice (07) ==
LOC: SERX 12:20
PROVIDERS: Emergency Provider Family Medicine
DX: R11.2 Nausea with vomiting, unspecified (principal); F12.90 Cannabis use, unspecified, uncomplicated; Z53.29 Procedure and treatment not carried out because of patient's decision for other reasons
CPT/HCPCS: 80053; 83735; 85025; 96372; 99282; J1630; J2765

== ENCOUNTER 2025-07-21 07:43 | Emergency (ER) | payer OTHER, MEDICAID, SELFPAY ==
[2025-07-21 07:52] VITALS: BP 112/79; PULSE 106; RESP 17; TEMP 36.7; O2SAT 99; BMI 18.6
[2025-07-21] MEDS: PROMETHAZINE INJ 25 MG/ML VIAL 12.5 MG IM (08:07)
--- NOTE | 2025-07-21 08:12 | PD.EDNV ---
Nausea/Vomit./Diarrhea-RME/HPI General Chief complaint: Nausea/Vomiting/Diarrhea Stated complaint: Vomiting X 5 days, syncope X 2 Time Seen by Provider: 07/21/25 07:59 Source: patient Arrival date/time: 07/21/25 07:43 25-year-old male with no known medical history presents to the emergency room with a chief complaint of vomiting x 5 days Mode of arrival: ambulatory Limitations: no limitations Related Data Previous Rx's ?Medication ?Instructions ?Recorded metoclopramide HCl 10 mg tablet 10 mg PO Q6H PRN nausea and 06/07/22 (Reglan) vomiting #20 tabs promethazine 25 mg tablet 25 mg PO TID PRN nausea and 10/21/22 vomiting #14 tabs azithromycin 250 mg tablet See Rx Instructions PO .COMPLEX #6 10/31/24 (Zithromax Z-Jimbo) tabs acetaminophen-caffeine 500 mg-65 1 tab PO Q6H PRN pain #30 tabs 12/12/24 mg tablet (Excedrin Tension Headache) ibuprofen 600 mg tablet 600 mg PO Q6H #30 tabs 12/12/24 ondansetron 4 mg disintegrating 4 mg PO Q8H PRN nausea and 03/05/25 tablet vomiting #14 tabs prochlorperazine maleate 10 mg 10 mg PO Q8H PRN nausea and 03/26/25 tablet (Compazine) vomiting #20 tabs ondansetron 4 mg disintegrating 4 mg PO Q8H PRN nausea and 04/13/25 tablet vomiting #14 tabs Allergies Allergy/AdvReac Type Severity Reaction Status Date / Time marijuana (cannabis) Allergy Severe Vomiting Verified 07/21/25 07:47 Review of Systems Review of Systems Systems Reviewed: All systems reviewed, normal except as documented Constitutional Constitutional: Reports system reviewed and no additional complaints, except as documented, Denies fatigue, Denies fever(s), Denies headache(s) and Denies weakness Eyes Eyes: Reports system reviewed and no additional complaints, except as documented, Denies blurry vision and Denies change in vision ENT Ears, Nose, Mouth, and Throat: Reports system reviewed and no additional complaints, except as documented, Denies otalgia, Denies headache(s), Denies nasal congestion, Denies throat swelling and Denies vertigo Cardiovascular Cardiovascular: Reports system reviewed and no additional complaints, except as documented, Denies chest pain, Denies dyspnea and Denies dyspnea on exertion Respiratory Respiratory: Reports system reviewed and no additional complaints, except as documented, Denies chest congestion, Denies cough, Denies dyspnea, Denies dyspnea on exertion and Denies wheezing Gastrointestinal Gastrointestinal: Reports system reviewed and no additional complaints, except as documented, Reports abdominal pain, Reports cramping, Reports nausea and Reports vomiting Genitourinary Genitourinary: Reports system reviewed and no additional complaints, except as documented, Denies dysuria and Denies hematuria Musculoskeletal Musculoskeletal: Reports system reviewed and no additional complaints, except as documented and Denies back pain Integumentary/Breasts Skin/Breast: Reports system reviewed and no additional complaints, except as documented and Denies wounds Neurologic Neurologic: Reports system reviewed and no additional complaints, except as documented, Denies confusion, Denies headache(s), Denies lack of coordination, Denies vertigo and Denies weakness Psychiatric Psychiatric: Reports system reviewed and no additional complaints, except as documented, Denies anxiety, Denies confusion, Denies depression, Denies paranoia, Denies suicidal ideation and Denies tactile hallucinations Endocrine Endocrine: Reports system reviewed and no additional complaints, except as documented and Denies fatigue Hematologic/Lymphatic Hematologic/Lymphatic: Reports system reviewed and no additional complaints, except as documented and Denies lymphadenopathy Allergic/Immunologic Allergic/Immunologic: Reports system reviewed and no additional complaints, except as documented, Denies throat swelling, Denies urticaria and Denies wheezing ED Exam General Limitations: Present no limitations General appearance: Present alert and in no apparent distress Head Head exam: Present atraumatic Eye Eye exam: Present normal appearance, PERRL and EOMI ENT ENT exam: Present normal exam, normal oropharynx and mucous membranes moist Neck Neck exam: Present normal inspection, full ROM and trachea midline Chest Chest inspection: Present normal inspection and symmetric chest wall rise Respiratory Respiratory exam: Present normal lung sounds bilaterally Cardiovascular Cardiovascular exam: Present regular rate, normal rhythm and normal heart sounds Abdominal Exam Abdominal exam: Present soft, tenderness and normal bowel sounds; Absent Chiang's sign, Rovsing's sign or tenderness at McBurney's Point Abdominal tenderness: Present mild Extremities Exam Extremities exam: Present normal inspection and full ROM Back Exam Back exam: Present normal inspection and full ROM Neurological Exam Neurological exam: Present alert, oriented X3 and CN II-XII intact Psychiatric Psychiatric exam: Present normal affect and normal mood Skin Skin exam: Present warm, dry, intact and normal color Course Quality Measures none Orders Category Date Time Status CBC Stat Lab 07/21/25 09:39 Ordered CMP [Comprehensive Metabolic Panel] Stat Lab 07/21/25 09:39 Ordered Drug Screen,Urine Stat Lab 07/21/25 07:59 Ordered Lipase Stat Lab 07/21/25 09:39 Ordered UA [Urinalysis] Stat Lab 07/21/25 07:58 Ordered Urine Culture Stat Lab 07/21/25 07:58 Ordered Promethazine Inj [Phenergan Inj] Med 07/21/25 07:58 Discontinued 12.5 mg IM X1 ONE Vital Signs Vital signs: Vital Signs Temperature 98.1 F 07/21/25 07:52 Pulse Rate 106 H 07/21/25 07:52 Respiratory Rate 17 07/21/25 07:52 Blood Pressure 112/79 07/21/25 07:52 Pulse Oximetry (%) 99 07/21/25 07:52 Oxygen Delivery Method Room Air 07/21/25 07:52 Nausea/Vomiting/Diarrhea MDM Narrative MDM Narrative:: 25-year-old male with no known medical history presents to the emergency room with a chief complaint of vomiting x 5 days Patient is hemodynamically stable and in no apparent distress Physical examination shows generalized abdominal tenderness. Patient states has been vomiting for the last 5 days. Blood work urinalysis was ordered but the patient eloped prior to getting blood work or given urine. Patient data External records reviewed:: [facility] previous records Clinical information provided by:: patient Social determinants that could affect healthcare access:: none Patient has the following chronic illnesses:: No chronic illness How is presenting disease/condition affected by chronic disease/condition?: no chronic disease Evaluation data The following diagnostics were reviewed and interpreted by me:: lab results and radiology exam(s) Lab and/or radiology exams considered but not ordered:: Labs and radiology exams considered and ordered Interpretation Summary: N/A Medications / Prescriptions Medications / Prescriptions considered but not ordered:: Medication given Medication administrations:: Medication Administration History Discontinued Medications Promethazine HCl (Promethazine Inj 25 Mg/Ml Vial) 12.5 mg IM X1 ONE; Protocol Stop: 07/21/25 07:59 Last Admin: 07/21/25 08:07 Dose: 12.5 mg Documented By: JOANIE Comments: Medication given Consultations Consultation(s) initiated? (list below): No Diagnosis Nausea Differential Diagnosis: traveler's diarrhea, gastroenteritis, dehydration and other (Cannabinoid hyperemesis) Most likely diagnosis given after review of the tests above:: Gastroenteritis Admission Indicated Admission indicated?: not indicated Admission Request Was there a request for admission?: No Disposition Plan Disposition Plan: Discharge Discharge Attestation Discharge Attestation: The patient and all family members were given an opportunity to ask questions and understood the discharge instructions. Discharge instructions specifically effects, indications for sooner follow up or return to the emergency department, and the expected course of current diagnosis. Patient condition: Stable Discharge Plan Plan Patient Disposition: Elopement Discharge Disposition comment: Stable Prescriptions/Referrals Prescriptions/Med Rec: No Action metoclopramide HCl [Reglan] 10 mg tablet 10 mg PO Q6H PRN (Reason: nausea and vomiting) Qty: 20 0RF azithromycin [Zithromax Z-Jimbo] 250 mg tablet See Rx Instructions .ROUTE .COMPLEX Qty: 6 0RF Rx Instructions: For 250 mg dose pack: take 500 mg today (day 1), then 250 mg for 4 days (days 2-5) ondansetron 4 mg tablet,disintegrating 4 mg PO Q8H PRN (Reason: nausea and vomiting) Qty: 14 0RF prochlorperazine maleate [Compazine] 10 mg tablet 10 mg PO Q8H PRN (Reason: nausea and vomiting) Qty: 20 0RF Rx Instructions: Do not take with metoclopramide/Reglan. ondansetron 4 mg tablet,disintegrating 4 mg PO Q8H PRN (Reason: nausea and vomiting) Qty: 14 0RF promethazine 25 mg tablet 25 mg PO TID PRN (Reason: nausea and vomiting) Qty: 14 0RF Rx Instructions: Please do not take while taking metoclopramide Excedrin Tension Headache 500-65 mg tablet 1 tab PO Q6H PRN (Reason: pain) Qty: 30 0RF ibuprofen 600 mg tablet 600 mg PO Q6H Qty: 30 0RF Problem List Clinical Impression: Gastroenteritis Patient/Caregiver Discharge Instructions Print Language: Lebanese
--- NOTE | 2025-07-21 10:12 | PC.NURSE ---
RADIO SCRIPT WRITER ATTEMPTED TO CALL PT BACK TO REGISTER BUT NO ANSWER IN LOBBY
--- NOTE | 2025-07-21 11:19 | PC.NURSE ---
NA x [phone]
== END 2025-07-21 11:20 | disposition left against medical advice (07) ==
PROVIDERS: Emergency Provider Emergency Medicine
DX: K52.9 Noninfective gastroenteritis and colitis, unspecified (principal)
CPT/HCPCS: 80053; 80307; 81001; 83690; 85025; 87086; 99282; J2550

== ENCOUNTER 2025-07-21 16:19 | Emergency (ER) | payer OTHER, MEDICAID, SELFPAY ==
[2025-07-21 16:24] VITALS: BP 119/80; PULSE 98; RESP 16; TEMP 37.3; O2SAT 96
--- NOTE | 2025-07-21 16:47 | EKG_ITS ---
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
--- NOTE | 2025-07-21 16:49 | XR_ITS ---
Examination: AP chest single view Technique one AP portable upright chest single view Date and time: July 21, 2025, 1715 hrs., Comparison October 31, 2024 Indications: Syncopal episode today. Findings: Normal heart size. At least mild hyperexpansion. No aspiration pneumonia. The osseous structures are intact Impression: No aspiration pneumonia
--- NOTE | 2025-07-21 16:50 | EDNOTE_ITS ---
ED Syncope RME/HPI General Chief Complaint: Syncope / Near Syncope Stated Complaint: SYNCOPE Time Seen by Provider: 07/21/25 16:44 Arrival date/time: 07/21/25 16:19 RME / HPI RME / HPI narrative: 25-year-old male patient with significant history of gastritis, was put in by EMS for evaluation regarding vomiting. Patient has been having vomiting, diarrhea, for the last 4 days, and today patient developed syncope lasting for few seconds. Patient was noted to be having continuous gagging however no vomiting. Patient ambulates with assistance according to the EMS. Denies any headache denies any chest pain denies any other complaints no medication was taken prior to ER visit. Related Data Previous Rx's ?Medication ?Instructions ?Recorded metoclopramide HCl 10 mg tablet 10 mg PO Q6H PRN nause a and 06/07/22 (Reglan) vomiting #20 tabs promethazine 25 mg tablet 25 mg PO TID PRN nausea and 10/21/22 vomiting #14 tabs azithromycin 250 mg tablet See Rx Instructions PO .COM PLEX #6 10/31/24 (Zithromax Z-Jimbo) tabs acetaminophen-caffeine 500 mg-65 1 tab PO Q6H PRN pain #30 tabs 12/12/24 mg tablet (Excedrin Tension Headache) ibuprofen 600 mg tablet 600 mg PO Q6H #30 tabs 12/12 ondansetron 4 mg disintegrating 4 mg PO Q8H PRN nausea and 03/05/25 tablet vomiting #14 tabs prochlorperazine maleate 10 mg 10 mg PO Q8H PRN nausea and 03/26/25 tablet (Compazine) vomiting #20 tabs ondansetron 4 mg disintegrating 4 mg PO Q8H PRN nausea and 04/13/25 tablet vomiting #14 tabs sucralfate 100 mg/mL oral 10 ml PO BID #200 mL 5 suspension (Carafate) Allergies Allergy/AdvReac Type Severity Reaction Status Date / Time marijuana (cannabis) Allergy Severe Vomiting Verified 07/21/25 17:00 Review of Systems Review of Systems Narrative Review of Systems: Review of system reviewed and within normal limits except mentioned in HPI ED Exam Narrative Physical exam: VITAL SIGNS: Reviewed. GENERAL APPEARANCE: Alert and interactive, follows commands, no acute distress, HEAD AND FACE: Non-traumatic. ENT: PERRL, pink conjunctivitis, eyelid no trauma, Mucous membrane dry NECK: Supple, nontender, no nuchal rigidity. CHEST: No tenderness, no crepitus, no paradoxical movement, no retractions. LUNGS: Clear, well ventilated, symmetric, no rales, no wheezing, no ronchi, no stridor, good breath sounds bilaterally. HEART: Regular rate, regular rhythm, no murmur, no gallops. ABDOMEN: Soft, positive bowel sounds, nondistended, no guarding, nontender, no rebound, no masses, RECTAL: Deferred. GENITAL: Deferred. NEUROLOGICAL: Gross motor function intact sensory function intact, Appropriate for age. MUSCULOSKELETAL: low back nontender, full range of motion. EXTREMITIES: Nontender, full range of motion. SKIN: Color pink, dry, no rash, no lacerations, no abrasions, no contusions. LYMPHATICS: Deferred. Course Quality Measures none Orders Category Date Time Status EKG (ED ONLY) *Do not use* NOW Care 07/21/25 16:50 Completed EKG (ED Only) Stat Exams 07/21/25 16:47 Draft XR chest 1V Stat Exams 07/21/25 16:49 Completed CBC Stat Lab 07/21/25 17:50 Completed Comprehensive Metabolic Panel Stat Lab 07/21/25 17:50 Completed Drug Screen,Urine Stat Lab 07/21/25 18:00 Completed Partial Thromboplastin Time Stat Lab 07/21/25 17:50 Completed Troponin I Stat Lab 07/21/25 17:50 Completed Urinalysis, C/S if Indicated Stat Lab 07/21/25 18:00 Completed Famotidine Inj [Pepcid Inj] Med 07/21/25 16:47 Discontinued 20 mg IVP X1 ONE Metoclopramide Inj [Reglan Inj] Med 07/21/25 16:47 Discontinued 10 mg IVP X1 ONE Ringers Lactated 1000 ml [Lactated Ringers] 1,000 ml Med 07/21/25 16:50 Discontinued IV 999 mls/hr Ringers Lactated 1000 ml [Lactated Ringers] 1,000 ml Med 07/21/25 16:50 Discontinued IV 999 mls/hr Vital Signs Vital signs: Vital Signs Temperature 99.1 F 07/21/25 16:24 Pulse Rate 98 07/21/25 16:24 Respiratory Rate 16 07/21/25 16:24 Blood Pressure 119/80 07/21/25 16:24 Pulse Oximetry (%) 96 07/21/25 16:24 Syncope [facility] Narrative [facility] Narrative:: 25-year-old male patient with significant history of gastritis, was put in by EMS for evaluation regarding vomiting. Patient has been having vomiting, diarrhea, for the last 4 days, and today patient developed syncope lasting for few seconds. Patient was noted to be having continuous gagging however no vomiting. Patient ambulates with assistance according to the EMS. Denies any headache denies any chest pain denies any other complaints no medication was taken prior to ER visit. Laboratory workup all came back unremarkable. Except for positive marijuana total bili of 12.9, patient had chronic elevation of total bili, for several years. EKG showed normal sinus rhythm, ventricular rate of 80 bpm, no ST se gment elevation depression noted. Patient received 2 L of IV fluids, Pepcid IV, and Reglan with complete resolution of symptoms patient is tolerating p.o. fluids in the ED. Was advised to follow-up closely with PCP and for monitoring of his total bili. Stable discharge home Patient data External records reviewed:: None Clinical information provided by:: patient Social determinants that could affect healthcare access:: substance use Patient has the following chronic illnesses:: Marijuana abuse How is presenting disease/condition affected by chronic disease/condition?: exacerbated by Evaluation data The following diagnostics were reviewed and interpreted by me:: lab results and EKG tracing(s) Lab and/or radiology exams considered but not ordered:: None Interpretation Summary: See results MDM Medications / Prescriptions Medications or Prescriptions considered but not ordered:: None Medication administrations:: Medication Administration History Discontinued Medications Famotidine (Famotidine Inj 10 Mg/Ml Vial 2 Ml) 20 mg IVP X1 ONE Stop: 07/21/25 16:48 Last Admin: 07/21/25 17:34 Dose: 20 mg Documented By: SCOTTIE Lactated Ringer's (Lactated Ringers) 1,000 mls @ 999 mls/hr IV .Q1H1M ONE Stop: 07/21/25 17:50 Last Admin: 07/21/25 17:36 Dose: 999 mls/hr Documented By: SCOTTIE Lactated Ringer's (Lactated Ringers) 1,000 mls @ 999 mls/hr IV .Q1H1M ONE Stop: 07/21/25 17:50 Last Admin: 07/21/25 17:36 Dose: 999 mls/hr Documented By: SCOTTIE Metoclopramide HCl (Metoclopramide Inj 5 Mg/Ml Vial 2 Ml) 10 mg IVP X1 ONE; Protocol Stop: 07/21/25 16:48 Last Admin: 07/21/25 17:33 Dose: 10 mg Documented By: SCOTTIE See MDM Consultations Consultation(s) initiated? (list below): No Diagnosis Syncope Differential Diagnosis: syncope due to orthostatic hypotension, vaso vagal syncope and dehydration Most likely diagnosis given after review of the tests above:: Vomiting, dehydration, vasovagal syncope Admission Indicated Admission indicated?: not indicated Admission Request Was there a request for admission?: No Disposition Plan Disposition Plan: Discharge Discharge Attestation Discharge Attestation: The patient was given an opportunity to ask questions and understood the discharge instructions. Discharge instructions specifically effects, indications for sooner follow up or return to the emergency department, and the expected course of current diagnosis. Patient condition: Stable Discharge Plan Plan Patient Disposition: HOME (Self Care) Discharge Disposition comment: Stable Prescriptions/Referrals Prescriptions/Med Rec: New sucralfate [Carafate] 100 mg/mL suspension 10 ml PO BID Qty: 200 0RF No Action metoclopramide HCl [Reglan] 10 mg tablet 10 mg PO Q6H PRN (Reason: nausea and vomiting) Qty: 20 0RF azithromycin [Zithromax Z-Jimbo] 250 mg tablet See Rx Instructions .ROUTE .COMPLEX Qty: 6 0RF Rx Instructions: For 250 mg dose pack: take 500 mg today (day 1), then 250 mg for 4 days (days 2-5) ondansetron 4 mg tablet,disintegrating 4 mg PO Q8H PRN (Reason: nausea and vomiting) Qty: 14 0RF prochlorperazine maleate [Compazine] 10 mg tablet 10 mg PO Q8H PRN (Reason: nausea and vomiting) Qty: 20 0RF Rx Instructions: Do not take with metoclopramide/Reglan. ondansetron 4 mg tablet,disintegrating 4 mg PO Q8H PRN (Reason: nausea and vomiting) Qty: 14 0RF promethazine 25 mg tablet 25 mg PO TID PRN (Reason: nausea and vomiting) Qty: 14 0RF Rx Instructions: Please do not take while taking metoclopramide Excedrin Tension Headache 500-65 mg tablet 1 tab PO Q6H PRN (Reason: pain) Qty: 30 0RF ibuprofen 600 mg tablet 600 mg PO Q6H Qty: 30 0RF Referrals: Blossom Augustin FNP [Primary Care Provider] - In 1 week Problem List Clinical Impression: Vasovagal syncope, Vomiting, Dehydration Patient/Caregiver Discharge Instructions Discharge Activity: activity as tolerated Education Materials: Treatment for Vasovagal Syncope Additional Instructions: Thank you for the opportunity for serving you today. You are stable for discharged . You are advised to: Follow-up with your PCP in 1 to 2 days Return to ED for worsening of symptoms Increase oral fluids Take medication as prescribed Print Language: Tristanian Stand Alone Forms: [employer] Award Info., Patient Portal Info Letter IFTIKHAR/ROSALIND Supervising Physician IFTIKHAR/ROSALIND Supervising Physician: MD Peterson
[2025-07-21 16:56] VITALS: PULSE 75; BMI 18.6
[2025-07-21] MEDS: METOCLOPRAMIDE INJ 5 MG/ML VIAL 2 ML 10 MG IVP (17:33)
[2025-07-21] MEDS: FAMOTIDINE INJ 10 MG/ML VIAL 2 ML 20 MG IVP (17:34)
[2025-07-21] MEDS: RINGERS LACTATED 1000 ML 1,000 ML 999 ML IV ×2 (17:36)
[2025-07-21 18:08] LABS: Basophils # (Auto) 0.0 Thou/mm3 (0.0-0.2); Basophils % (Auto) 0 % (0-2.5); Eosinophils # (Auto) 0.0 Thou/mm3 (0.0-0.5); Eosinophils % (Auto) 0 % (0-10); Hematocrit 37.7 % (41.0-53.0); Hemoglobin 13.2 g/dL (13.5-16.0); Immature Granulocytes Auto 0.02 Thou/mm3 (0.00-0.00); Lymphocytes # (Auto) 0.9 Thou/mm3 (1.0-4.8); Lymphocytes % (Auto) 13 % (10-50); Mean Corpuscular HGB Conc 35.0 g/dl (31.0-37.0); Mean Corpuscular Hemoglobin 29.5 pg (25.0-35.0); Mean Corpuscular Volume 84 fL (80-100); Monocytes # (Auto) 0.3 Thou/mm3 (0.0-0.8); Monocytes % (Auto) 5 % (0-12); Neutrophils # (Auto) 6.0 Thou/mm3 (1.8-7.7); Neutrophils % (Auto) 83 % (37-80); Nucleated Red Blood Cell # 0.00 Thou/mm3 (0.00-0.00); Nucleated Red Blood Cell % 0 /100 WBC (0); Platelet Count 250 Thou/mm3 (140-440); RDW Standard Deviation 39.2 fL (35.1-43.9); Red Blood Count 4.48 Miln/mm3 (4.50-5.90); White Blood Count 7.3 Thou/mm3 (3.8-10.6)
[2025-07-21 18:08] LABS: Collection Type, Urine Clean Catch; Squamous Epithelial Cell,Urine 0 /hpf (0-5)
[2025-07-21 18:16] VITALS: BP 107/66; PULSE 91; RESP 15; TEMP 36.7; O2SAT 100
[2025-07-21 18:22] LABS: Partial Thromboplastin Time 26.8 Seconds (22.0-36.0)
[2025-07-21 18:25] LABS: Bilirubin,Urine Negative (Negative); Blood,Urine Trace (Negative); Clarity,Urine Clear (Clear/Hazy); Color,Urine Colorless (Lt Yel-Yel); Culture Indicated,Urine Not Indicated; Glucose, Urine Negative (Negative); Ketones,Urine Negative (Negative); Leukocyte Esterase,Urine Negative (Negative); Nitrite,Urine Negative (Negative); PH,Urine 6.0 (5.0-7.0); Protein,Urine Negative (Neg - Trace); RBC,Urine 1 /hpf (0-3); Specific Gravity,Urine 1.006 (1.001-1.035); Urobilinogen,Urine Negative mg/dL (0.0-1.0); WBC,Urine 1 /hpf (0-5)
[2025-07-21 18:28] LABS: Amphetamine/Methamp Scrn,U Negative (Negative); Barbiturate Screen,Urine Negative (Negative); Benzodiazepines Screen,Urine Negative (Negative); Benzoylecgonine Screen, Ur Negative (Negative); Fentanyl Screen,Urine Negative (Negative); Opiate Screen,Urine Negative (Negative); THC Screen,Urine Positive (Negative)
[2025-07-21 18:32] LABS: Alanine Aminotransferase 18 U/L (10-49); Albumin, Serum 4.8 gm/dL (3.5-5.0); Albumin/Globulin Ratio 2.0 (1.2-2.2); Alkaline Phosphatase 57 U/L (46-116); Anion Gap 11 (7-16); Aspartate Amino Transferase 74 U/L (0-34); BUN/Creatinine Ratio 11 Ratio (12-20); Bilirubin,Total 2.9 mg/dL (0.3-1.2); Blood Urea Nitrogen 11 mg/dL (9-23); Calcium 10.2 mg/dL (8.3-10.6); Calcium (Corrected) 10.2 mg/dL (8.5-10.1); Carbon Dioxide 28.4 mMol/L (20.0-31.0); Chloride 98 mMol/L (98-107); Creatinine (Component) 1.0 mg/dL (0.6-1.3); Estimated Creatinine Clearance 84.8 mL/min (>60); Globulin 2.4 gm/dL (2.3-3.5); Glucose 138 mg/dL (74-106); Osmolality,Calculated 275 (275-295); Potassium 3.6 mMol/L (3.4-5.1); Sodium 137 mMol/L (136-145); Total Protein 7.2 gm/dL (5.7-8.2); Troponin I < 0.020 ng/mL (0.0-0.045); eGFR > 60 See Note
[2025-07-21 20:03] VITALS: BP 101/50; PULSE 85; RESP 19; TEMP 37; O2SAT 100
== END 2025-07-21 20:10 | disposition home or self-care (01) ==
PROVIDERS: Nurse Practitioner Family; Emergency Provider Emergency Medicine; PCP Student in an Organized Health Care Education/Training Program
DX: E86.0 Dehydration (principal); R55 Syncope and collapse; R11.10 Vomiting, unspecified; I48.92 Unspecified atrial flutter
CPT/HCPCS: 36415; 71045; 80053; 80307; 81001; 84484; 85025; 85730; 93005; 99284; J2765; J3490; J7120